=== PATIENT | male | born 1935 | race Caucasian/White ===

== ENCOUNTER 2016-08-17 07:33 | Inpatient (IN) | payer MEDICARE, OTHER ==
[~2016-08-17] VITALS: Ht 172.7 cm; Wt 69.9 kg
[2016-08-17] VITALS (29 sets, daily range): BP systolic 64–169; BP diastolic 44–99
[~2016-08-17 07:33] MED LIST: ACET325T53 PO; BENA20TA78 PO; CRAN425C PO; DONE5TAB3 PO; MEMA5TAB PO; SACC250C6 PO
--- NOTE | 2016-08-17 07:33 | NUR ---
Harinder from [facility] for sob since this morning. Patient appears in distress, noted on cpap upon arrival. Sating low 80s on room air. Skin is warm to touch and non diaphoretic. Afebrile. MD Pino at bedside.
--- NOTE | 2016-08-17 07:37 | NUR ---
intraosseaous accessed by MD Crabtree. IV insertion failed after multiple attemps.
[2016-08-17] MEDS ORDERED: PROPOFOL 100 ML IV ONE (07:38)
[2016-08-17] MEDS ORDERED: IV SET PRIMARY PUMP SET 1 EA INFUS.SET MC ONE ×3 (07:39→11:45)
--- NOTE | 2016-08-17 07:40 | NUR ---
Patient was intubated by MD Pion- ET size 7.5 inches , 24 cm at the lip
--- NOTE | 2016-08-17 07:45 | NUR ---
VENT SETTINGS- AC-18, TV-550, SH72-807%, PEEP OF 5.
--- NOTE | 2016-08-17 07:50 | NUR ---
AT FOR CENTRAL LINE INSERTION.
--- NOTE | 2016-08-17 07:50 | NUR ---
RT PT BROUGHT INTO ER ON A CPAP MASK BY PARAMEDICS. PT PRESENTS INCREASED WORK OF BREATHING AND RESPIRATORY DISTRESS. PT WAS ORALLY INTUBATED BY DR. CASTILLO WITH A 7.5 ETT SECURED AT 24CM AT THE LIP LINE. EQUAL BILATERAL BREATHE SOUNDS AND CHEST RISE. POSITIVE CO2 COLOR CHANGE. PT PLACED ON VENT WITH NOTED SETTINGS (AC, 18, 550, 100%, +5). VENT IS PLUGGED INTO RED OUTLET WITH BVM BY BEDSIDE. VENT ALARMS ARE SET AND AUDIBLE. SECURITY ORDERLY CUFF PRESSURE NOTED. WILL CONTINUE TO MONITOR. Addendum: 08/17/16 at 1423 by DANY FULLER RT Amended: Links added.
[2016-08-17] MEDS ORDERED: MORPHINE SULFATE INJ 4 MG/ML DISP.SYRIN ONE (07:59)
[2016-08-17] MEDS ORDERED: MORPHINE SULFATE INJ 2 MG/ML DISP.SYRIN ONE (07:59)
--- NOTE | 2016-08-17 08:04 | NUR ---
RECEIVED VERBAL ORDERS FOR MORPHINE IVP 6MG. ORDERS CARRIED OUT.
[2016-08-17] MEDS ORDERED: ALBU2.5V38 NEB (08:19)
[2016-08-17] MEDS ORDERED: MAG30ORA PO (08:19)
[2016-08-17] MEDS ORDERED: BISA10SU8 RC (08:19)
[2016-08-17] MEDS ORDERED: SENN8.6T6 PO (08:19)
[2016-08-17] MEDS ORDERED: NA P133E RC (08:19)
[2016-08-17] MEDS ORDERED: PANT40TA2 PO (08:19)
[2016-08-17] MEDS ORDERED: MULT-213 PO (08:19)
[2016-08-17] MEDS ORDERED: FERR-58 PO (08:19)
[2016-08-17] MEDS ORDERED: LACT10SO PO (08:19)
[2016-08-17] MEDS ORDERED: MAGN400O6 PO (08:19)
[2016-08-17] MEDS ORDERED: HYDR-552 PO (08:19)
--- NOTE | 2016-08-17 08:23 | NUR ---
( 16) FR chester catheter inserted per sterile protocal. Immediate output ( 100)ML of urine, color ( ), clarity (YELLOW )
[2016-08-17] MEDS ORDERED: MORPHINE SULFATE INJ 2 MG/ML DISP.SYRIN IV ONE (08:30)
[2016-08-17] MEDS ORDERED: PROPOFOL 100 ML IV PRN (08:30)
[2016-08-17 08:43] LABS: APPEARANCE,URINE SL CLOUDY (CLEAR); BILIRUBIN,URINE NEGATIVE (NEGATIVE); BLOOD, URINE 1+ Ery/uL (NEGATIVE); COLOR,URINE YELLOW (YELLOW); KETONES,URINE NEGATIVE (NEGATIVE); LEUKOCYTE ESTERASE ,URINE NEGATIVE (NEGATIVE); NITRITE, URINE NEGATIVE (NEGATIVE); PH,URINE 5.5 (5.0-8.0); PROTEIN,URINE 2+ mg/dl (NEGATIVE); UGLUCOSE 2+ mg/dL (NEGATIVE)
--- NOTE | 2016-08-17 08:44 | NUR ---
XRAY DONE AT BS.
[2016-08-17 08:53] LABS: CALCIUM, SERUM 7.4 mg/dL (8.5-10.1); CARBON DIOXIDE 25 mmol/L (21-32); CHLORIDE 108 mmol/L (98-107); CREATININE 0.9 mg/dL (0.6-1.3); GLUCOSE 138 mg/dL (74-106); POTASSIUM 3.2 mmol/L (3.5-5.1); SODIUM SERUM 143 mmol/L (136-145); UREA NITROGEN, BLOOD 19 mg/dL (7-18)
--- NOTE | 2016-08-17 08:58 | NUR ---
vent setting- ac 18 tv 550 fio2 100% peep 5
[2016-08-17 08:59] LABS: ADD URINE CULTURE NO; BACTERIA,URINE Rare /HPF (None Seen); HYALINE CASTS, URINE Few /LPF (None Seen); MUCUS,URINE Few /LPF (None Seen); SQUAMOUS EPITHELIAL CELL,UR Rare /HPF (None Seen); TROPONIN I < 0.017 ng/mL (0.00-0.056); WBC,URINE 0-2 /HPF (0-3)
[2016-08-17 09:00] LABS: YEAST,URINE Few /HPF (None Seen)
[2016-08-17] MEDS ORDERED: IV NS 0.9% 1,000 ML BAG IV ONE ×2 (09:00→09:30)
[2016-08-17 09:02] LABS: LACTIC ACID 4.3 mmol/L (0.4-2.0)
[2016-08-17 09:03] LABS: INR 1.24 (0.87-1.13); PROTHROMBIN TIME 13.4 SECS (9.5-12.7)
[2016-08-17] MEDS ORDERED: FEE EMEERGENCY 1 MIN EA MC ONE (09:04)
[2016-08-17] MEDS ORDERED: ETOMIDATE 2 MG/ML VIAL IV ONE (09:04)
[2016-08-17] MEDS ORDERED: SUCCINYLCHOLINE CHLORIDE 20 MG/ML VIAL IV ONE (09:04)
[2016-08-17 09:05] LABS: ALANINE AMINOTRANSFERASE 30 U/L (12-78); ALBUMIN 2.5 g/dL (3.4-5.0); ALKALINE PHOSPHATASE 92 U/L (46-116); ASPARTATE AMINOTRANSFERASE 27 U/L (15-37); B-TYPE NATRIURETIC PEPTIDE 1206 PG/ML (0-125); BILIRUBIN,DIRECT 0.4 mg/dL (0.0-0.2); BILIRUBIN,TOTAL 1.3 mg/dL (0.2-1.0); TOTAL PROTEIN, SERUM 5.9 g/dL (6.4-8.2)
[2016-08-17 09:08] LABS: BASOPHILS % (AUTO) 0.3 % (0.0-2.0); EOSINOPHILS % (AUTO) 0.2 % (0.0-6.0); HEMATOCRIT 37 % (39-51); HEMOGLOBIN 12.1 g/dL (13.5-17.5); LYMPHOCYTES # (AUTO) 0.2 /CMM (0.8-4.8); LYMPHOCYTES % (AUTO) 8.8 % (20.0-44.0); MEAN CORPUSCULAR HEMOGLOBIN 32 PG (26.0-33.0); MEAN CORPUSCULAR HGB CONC 33 g/dl (31.0-36.0); MEAN CORPUSCULAR VOLUME 97 fL (80-96); MONOCYTES # (AUTO) 0.1 /CMM (0.1-1.30); NEUTROPHILS # (AUTO) 2.2 /CMM (1.8-8.9); NEUTROPHILS % (AUTO) 86.7 % (43.0-81.0); RDW COEFFICIENT OF VARIATION 14.3 (11.5-15.0); RED BLOOD CELL COUNT(AUTO) 3.79 MIL/uL (4.5-6.0); WHITE BLOOD COUNT (AUTO) 2.6 K/uL (4.3-11.0)
[2016-08-17 09:09] LABS: PLATELET COUNT (AUTO) 109 /CMM (150-450)
[2016-08-17 09:23] LABS: BAND % (MANUAL) 9 % (0.0-5.0); LYMPHOCYTES % (MANUAL) 12 % (16-48); MONOCYTES % (MANUAL) 6 % (0-11.0); NEUTROPHILS % (MANUAL) 73 (42-76); PLATELET ESTIMATE ADEQUATE
[2016-08-17 09:24] LABS: ANISOCYTOSIS 1+
[2016-08-17] MEDS ORDERED: LEVOFLOXACIN 750 MG /D5W 150ML 150 ML IV ONE ×2 (09:24→09:30)
[2016-08-17] MEDS ORDERED: IV NS 0.9% 2,000 ML ONE (09:25)
[2016-08-17 09:26] LABS: ABG BASE EXCESS -1.4 mmol/L; ABG OXYGEN SATURATION 98.8 % (92.0-98.5); ABG PH 7.364 (7.350-7.450); ABG PO2 309.3 mmHg (75.0-100.0); ABG TOTAL HEMOGLOBIN 12.4 G/dL (13.5-18.0); AaDO2 360.7 mmHg; COHb 0.6 % (0.5-1.5); O2Hb 97.2 % (94.0-97.0); PEEP,BG 5 cm H2O; SITE, ABG Right Radial; VT, ABG 550 mL
[2016-08-17] MEDS ORDERED: PIPERACILLIN /TAZOBACTAM 3.375 G in IV D5W 50 ML IV ONE (09:30)
[2016-08-17] MEDS ORDERED: VANCOMYCIN 1 GM in IV D5W 250 ML IV ONE (09:30)
--- NOTE | 2016-08-17 09:30 | NUR ---
PT MEDICATED ORDERED.
--- NOTE | 2016-08-17 09:48 | NUR ---
CALLED [facility] FOR PULMONARY CONSULT [phone]
--- NOTE | 2016-08-17 10:17 | NUR ---
ORACLE BUSINESS INTELLIGENCE DEVELOPER NOTES REPORT RECEIVED FROM INGRID ORR (ER)
--- NOTE | 2016-08-17 10:32 | NUR ---
Report given to nurse Rylan for cari
--- NOTE | 2016-08-17 10:32 | NUR ---
Patient trasnported to icu. vss
--- NOTE | 2016-08-17 10:45 | NUR ---
DRY CELL AND BATTERY ASSEMBLER NOTES RECEIVED PATIENT FROM ER SEDATED , RESPONSIVE TO TACTILE STIMULI , NOT IN ACUTE DISTRESS , RESPIRATIONS EVEN AND UNLABORED , SPO2 OF 100% VIA MECHANICAL VENTILATOR SETTINGS ORDERED , ETT 7.[address] , SR 73 ON BEDSIDE MONITOR , FC DRAINING WELL VIA GRAVITY WITH VAMSI COLORED URINE , ON KCI MATTRESS , BILATERAL SOFT WRIST IN PLACE , VISUAL CHECK PER PROTOCOL , R FEMORAL TRIPLE LUMEN CATH PATENT AND INTACT WITH DIPRIVAN @ 15MCG/MIN WILL TITRATE ACCORDINGLY , IVF NS BOLUS STILL INFUSING FROM ER , ALL NEEDS ATTENDED , BED ON LOW AND LOCKED POSITION , SIDE RAILS X2 ,CALL LIGHT WITHIN REACH , WILL CONTINUE TO MONITOR .
[2016-08-17] MEDS ORDERED: ENOXAPARIN SODIUM 40 MG/0.4 ML DISP.SYRIN SQ SCH (11:00)
[2016-08-17] MEDS ORDERED: PIPERACILLIN /TAZOBACTAM 3.375 G in IV D5W 50 ML IV SCH (11:00)
--- NOTE | 2016-08-17 11:00 | NUR ---
CLINICAL STAFF RN NOTES ORAL GASTRIC TUBE PLACED , VERIFIED PLACEMENT VIA AUSCULTATION , NOTED WITH GURGLING SOUND AT STOMACH AREA , CHEST XRAY ORDERED TO VERIFIED PLACEMENT
--- NOTE | 2016-08-17 11:05 | NUR ---
VENETIAN BLIND CLEANER NOTES DR DIAZ AT BEDSIDE FOR PULMONARY CONSULT , NOTIFIED PT DIAGNOSIS LABS AND CHEST XRAY RESULT , INTUBATED IN ER WITH ETT OF 7.5/24 , AC 18 , TV 550 FIO2 60% PEEP OF 5 , ABG RESULT RELAYED POST INTUBATION , NOTIFIED PT HAD 2.5 L NS BOLUS AND IV ANTIBIOTIC OF LEVAQUIN 750MG , ZOSYN 3.375 G AND VANCOMYCIN 1GM .
[2016-08-17] MEDS ORDERED: FEE PK DOSING 1 MIN EA MC ONE (11:06)
--- NOTE | 2016-08-17 11:10 | NUR ---
CUSTOMER TRAINER NOTES BODY ASSESSMENT DONE , TOOK PICTURES AND PLACED ON THE CHART , WOUND CONSULT ORDERED . WILL CONTINUE TO MONITOR
[2016-08-17] MEDS ORDERED: SECONDARY IV SET 1 EA INFUS.SET MC ONE ×2 (11:22→17:08)
[2016-08-17] MEDS: POTASSIUM CL. PREMIX PERIPHER. 50 ML IV SCH ×3 (11:53→13:29)
[2016-08-17] MEDS: IV D5/ 0.9% NACL 1,000 ML IV PRN ×2 (11:54→23:54)
[2016-08-17] MEDS: ALBUTEROL HALF STRENGTH 1.25 MG/3 ML VIAL.NEB NEB SCH ×2 (12:58→19:49)
[2016-08-17] MEDS: IPRATROPIUM NEB FS 0.5 MG/2.5 ML AMPUL.NEB NEB SCH ×2 (12:59→19:49)
--- NOTE | 2016-08-17 13:02 | NUR ---
LONG GOODS DRIER NOTES CALLED DR SEE'S OFFICE @ [phone] , SPOKE WITH STACY , PAGED FOR ADMISSION ORDERS .
--- NOTE | 2016-08-17 13:23 | NUR ---
SCRIPT MANAGER NOTES CALLED [facility] TO VERIFY PNA AND FLU VACCINE HISOTRY OF THE PT , PER RN , PT HAD FLU VACCINE AT February , AND PNEUMONIA VACCINE AT 06/29/12
[2016-08-17] MEDS: PROPOFOL 100 ML IV PRN (13:31)
[2016-08-17] MEDS ORDERED: IV NS 0.9% 1,000 ML ONE (14:12)
[2016-08-17] MEDS ORDERED: IV NS 0.9% 1,000 ML IV PRN (14:30)
[2016-08-17] MEDS ORDERED: NOREPINEPHRINE 8 MG in IV D5W 500 ML IV PRN (14:30)
--- NOTE | 2016-08-17 14:48 | NUR ---
SUCTION PLATE CARRIER CLEANER NOTES NOTIFIED DR SEE REGARDING PATIENT SECOND LACTIC ACID OF 4.2 , BP OF 60-70'S , PER MD GIVE 1L BOLUS , IF BLOOD PRESSURE STILL LOW AFTER 1 L NS BOLUS START LEVOPHED . ORDERS CARRIED OUT
--- NOTE | 2016-08-17 16:10 | NUR ---
ACCOUNT RESOLUTION EXPERT NOTES DR SEE AT BEDSIDE , NOTIFIED PT LABS , CHEST XRAY , AND BP OF 116/52 AFTER 1L NS BOLUS , TEMP OF 99.4 , SR 78 ON BEDSIDE MONITOR , PT HAS FC DRAINING WITH VAMSI COLORED URINE 40ML/HR , LACTIC ACID 4.2 , PENDING BLOOD URINE CULTURE , PER MD ADD SPUTUM CULTURE , NOTIFIED PT HAS R FEMORAL TRIPLE LUMEN CATH , PER MD CHANGE IT TO PICC LINE PT HAS NO NEXT OF KIN PER FACE SHEET, CONSENT WAS NOT SIGNED BY DR SEE , PER MD HE WILL PUT IT ON HIS NOTES , HOME MEDICATION REVIEWED BY NO MEDICATION RESTARTED , PER MD START LOVENOX 30SQ DAILY AND PROTONIX 40MG Q24 .
--- NOTE | 2016-08-17 16:15 | NUR ---
PHYSICIAN ANESTHESIOLOGIST NOTES JOLLEY CATHETER DISCONTINUED PT TOLERATED WELL , CHANGED TO CONDOM CATHETER PER DR SEE'S ORDER , WILL CONTINUE TO MONITOR
--- NOTE | 2016-08-17 16:39 | NUR ---
DROP FORGE HAND NOTES [facility] P[facility] LINE INSERTION ORDERED BY DR SEE .
[2016-08-17] MEDS: PANTOPRAZOLE 40 MG VIAL IV SCH (17:13)
[2016-08-17] MEDS: PIPERACILLIN /TAZOBACTAM 3.375 G in IV D5W 50 ML IV SCH ×2 (17:13→23:53)
[2016-08-17] MEDS: ENOXAPARIN SODIUM 30 MG/0.3 ML DISP.SYRIN SQ SCH (17:24)
--- NOTE | 2016-08-17 18:27 | NUR ---
RT END OF THE SHIFT REPORT: PT. 80 Y OLD MALE REMAIN ORALLY INTUBATED ETT#7.5@24CM ON VENT WITH NOTED SETTINGS, ALARMS ARE SET AND FUNCTIONAL, B/S RALES/RHONCHI BILATERALLY SUX' FOR MINIMAL GRIMALDO SECRETIONS, NO DISTRESS NOTED T/O SHIFT NO CHANGES T/O SHIFT. CONTINUED FOR MONITOR. TX'S STARTED INLINE NO ADVERSE REACTION NOTED AND GABRIELA. WELL EQUAL CHEST RISE NOTED PT. HME CHANGED, PATENT CHEMIST, AMBU BAG REMAIN AT THE BEDSIDE. REPORT WILL PASS TO PM SHIFT. Addendum: 08/17/16 at 1828 by GUME LAGUNAS RT Amended: Links added.
--- NOTE | 2016-08-17 19:23 | NUR ---
PT REC'D INTUBATED WITH 7.5 ETT @ 24CM AT THE LIP. PT ON VENT SETTINGS CHARTED. SX'D MOD WHITE SECRETIONS. VENT ALARMS SET AND AUDIBLE. AMBU BAG BEDSIDE. VENT IS PLUGGED IN RED OUTLET. WILL CONTINUE TO MONITOR. Addendum: 08/18/16 at 0007 by KIM LAI RT Amended: Links added.
--- NOTE | 2016-08-17 20:00 | NUR ---
ICU/RN- PT IN BED SEDATED. NO S/SX OF ACUTE DISTRESS NOTED AT THIS TIME. ON MONITOR W/ SR IN 70S. PT IS ORALLY INTUBATED W/ ETT 7.5/ AC 18, TV 550, FIO2 40%, P 5. TOLERATING WELL. WILL SUCTION ETT PRN FOR CLEARANCE. R FEM TLC IN PLACE W/ D5NS@100ML/HR AND DIPRIVAN @ 10MCG/KG/MIN. TOLERATING WELL. WILL TITRATE DIPRIVAN FOR SEDATION. REPOSITIONED FOR COMFORT. BED LOW AND IN LOCKED POSITION. WILL MONITOR PT ACCORDINGLY.
[2016-08-17] MEDS: VANCOMYCIN 0.75 GM in IV D5W 250 ML IV SCH (21:59)
[2016-08-18] VITALS (63 sets, daily range): BP systolic 79–145; BP diastolic 51–99
[2016-08-18] MEDS: ALBUTEROL HALF STRENGTH 1.25 MG/3 ML VIAL.NEB NEB SCH ×4 (01:32→20:22)
[2016-08-18] MEDS: IPRATROPIUM NEB FS 0.5 MG/2.5 ML AMPUL.NEB NEB SCH ×4 (01:33→20:22)
--- NOTE | 2016-08-18 04:36 | NUR ---
ICU/RN- AM CARE PROVIDED. BLADDER SCANNER USED DUE TO POOR URINE OUTPUT. RESULTS 232ML. WILL CONT TO MONITOR
[2016-08-18 05:01] LABS: CALCIUM, SERUM 7.2 mg/dL (8.5-10.1); CREATININE 0.8 mg/dL (0.6-1.3); POTASSIUM 3.6 mmol/L (3.5-5.1)
[2016-08-18] MEDS ORDERED: SECONDARY IV SET 1 EA INFUS.SET MC ONE ×3 (05:44→23:07)
[2016-08-18] MEDS: PIPERACILLIN /TAZOBACTAM 3.375 G in IV D5W 50 ML IV SCH ×4 (06:02→23:13)
[2016-08-18] MEDS: PROPOFOL 100 ML IV PRN ×2 (06:02→12:47)
[2016-08-18] MEDS ORDERED: IV SET PRIMARY PUMP SET 1 EA INFUS.SET MC ONE ×4 (06:04→20:14)
[2016-08-18] MEDS: VANCOMYCIN 0.75 GM in IV D5W 250 ML IV SCH ×2 (08:52→20:41)
[2016-08-18] MEDS: PANTOPRAZOLE 40 MG VIAL IV SCH (08:52)
--- NOTE | 2016-08-18 09:09 | NUR ---
WOUND CARE CONSULT: PT PRESENTS WITH IMMOBILITY, CARLOS SCORE OF 11 AND INCONTINENCE. PT INTUBATED. PT ON FIRST STEP MATTRESS. PT TO BE TURNED AND REPOSITIONED EVERY 2 HRS PT CONDITION PERMITS, HEELS FLOATED. ALL SKIN PROTECTION MEASURES IN PLACE AND DISCUSSED WITH NURSING STAFF. WILL SEE PRN. HAYNES IN AGREEMENT WITH PLAN OF CARE. Addendum: 08/18/16 at 0911 by LOWELL SMITH WNDNU Amended: Links added.
[2016-08-18] MEDS ORDERED: IV NS 0.9% 500 ML IV ONE (11:30)
[2016-08-18] MEDS: IV D5/ 0.9% NACL 1,000 ML IV PRN (12:47)
[2016-08-18] MEDS: Z GUARD REMEDY 2 OZ OINT TP PRN (12:48)
--- NOTE | 2016-08-18 15:26 | NUR ---
URINE OUTPUT 125 ML SINCE 500 ML BOLUS AT 1130. REPORTED TO DR DIAZ.
[2016-08-18] MEDS: ENOXAPARIN SODIUM 30 MG/0.3 ML DISP.SYRIN SQ SCH (17:21)
--- NOTE | 2016-08-18 17:25 | NUR ---
RT END OF THE SHIFT REPORT: PT. 80 Y OLD MALE REMAIN ORALLY INTUBATED ETT#7.5 @ 24CM ON VENT WITH NOTED SETTINGS, ALARMS ARE SET AND FUNCTIONAL, B/S RALES/RHONCHI BILATERALLY SUX' FOR LARGE GRIMALDO SECRETIONS, NO DISTRESS NOTED T/O SHIFT TX'S GIVEN INLINE AND NO ADVERSE REACTION NOTED. CONTINUED FOR MONITOR. VENT PLUGGED INTO RED OUTLET. EQUAL CHEST RISE NOTED. HME CHANGED, AMBU BAG REMAIN AT THE BEDSIDE. PT. REMAIN STABLE. REPORT WILL BE PASS TO PM SHIFT. Addendum: 08/18/16 at 1727 by GUME LAGUNAS RT Amended: Links added.
--- NOTE | 2016-08-18 20:52 | NUR ---
PT RECEIVED ON VENT VIA ETT, SETTINGS CHARTED AMBU BAG AT BEDSIDE ALARMS SET AND AUDIBLE SUCTIONED A SMALL AMOUNT OF THICK WHITE SECRETIONS BREATH SOUNDS EQUAL BILATERAL DIMINISHED PT RECEIVING ALBUTEROL AND ATROVENT Q6 Addendum: 08/18/16 at 2052 by WAYNE OLIVEIRA RT Amended: Links added.
[2016-08-19] VITALS (45 sets, daily range): BP systolic 94–158; BP diastolic 54–102
[2016-08-19] MEDS: PROPOFOL 100 ML IV PRN ×2 (01:45→18:03)
[2016-08-19] MEDS: IV D5/ 0.9% NACL 1,000 ML IV PRN (01:57)
[2016-08-19] MEDS: ALBUTEROL HALF STRENGTH 1.25 MG/3 ML VIAL.NEB NEB SCH ×4 (02:07→19:35)
[2016-08-19] MEDS: IPRATROPIUM NEB FS 0.5 MG/2.5 ML AMPUL.NEB NEB SCH ×4 (02:07→19:35)
[2016-08-19 04:32] LABS: EOSINOPHILS # (AUTO) 0.2 /CMM (0.0-0.7); EOSINOPHILS % (AUTO) 1.9 % (0.0-6.0); HEMATOCRIT 28 % (39-51); HEMOGLOBIN 9.4 g/dL (13.5-17.5); LYMPHOCYTES % (AUTO) 8.4 % (20.0-44.0); MEAN CORPUSCULAR HEMOGLOBIN 33 PG (26.0-33.0); MEAN CORPUSCULAR HGB CONC 34 g/dl (31.0-36.0); MEAN CORPUSCULAR VOLUME 96 fL (80-96); MONOCYTES # (AUTO) 0.4 /CMM (0.1-1.30); MONOCYTES % (AUTO) 3.7 % (2.0-12.0); NEUTROPHILS # (AUTO) 10.1 /CMM (1.8-8.9); PLATELET COUNT (AUTO) 92 /CMM (150-450); RDW COEFFICIENT OF VARIATION 14.9 (11.5-15.0); RED BLOOD CELL COUNT(AUTO) 2.87 MIL/uL (4.5-6.0); WHITE BLOOD COUNT (AUTO) 11.7 K/uL (4.3-11.0)
[2016-08-19 04:43] LABS: CALCIUM, SERUM 7.4 mg/dL (8.5-10.1); CREATININE 0.7 mg/dL (0.6-1.3)
[2016-08-19 04:48] LABS: POTASSIUM 2.8 mmol/L (3.5-5.1)
[2016-08-19 05:51] LABS: BAND % (MANUAL) 9 % (0.0-5.0); EOSINOPHILS % (MANUAL) 4 % (0-4); LYMPHOCYTES % (MANUAL) 9 % (16-48); MONOCYTES % (MANUAL) 4 % (0-11.0); NEUTROPHILS % (MANUAL) 74 (42-76)
[2016-08-19 05:52] LABS: HYPOCHROMASIA 2+; PLATELET ESTIMATE DECRE
--- NOTE | 2016-08-19 06:52 | NUR ---
ICU/RN- INFORMED DR SEE ABOUT LOW K OF 2.8. MD ORDERED TO HAVE PHARMACY ADJUST POTASSIUM AND ADD MG LEVEL FOR AM. ORDERS CARRIED OUT.
--- NOTE | 2016-08-19 06:55 | NUR ---
ICU/RN - SPOKE PHARMACIST. INFORMED ABOUT POTASSIUM ADJUSTMENT PER DR SEE.
[2016-08-19] MEDS: PIPERACILLIN /TAZOBACTAM 3.375 G in IV D5W 50 ML IV SCH ×3 (06:59→18:03)
--- NOTE | 2016-08-19 09:00 | NUR ---
SEDATION VACATION PER PROTOCOL. VSS, PT ABLE TO SQUEEZE MY HAND, ABLE TO ANSWER SIMPLE QUESTIONS, DENIED PAIN.
[2016-08-19 09:13] LABS: ABG BASE EXCESS -2.7 mmol/L; ABG OXYGEN SATURATION 97.5 % (92.0-98.5); ABG PCO2 28.7 mmHg (35.0-45.0); ABG PH 7.464 (7.350-7.450); ABG PO2 104.6 mmHg (75.0-100.0); ABG TOTAL HEMOGLOBIN 11.1 G/dL (13.5-18.0); AaDO2 147.6 mmHg; COHb 0.5 % (0.5-1.5); MetHb 0.8 % (0.0-1.5); O2Hb 96.2 % (94.0-97.0); PEEP,BG 5 cm H2O; SITE, ABG Left Radial; VT, ABG 550 mL
[2016-08-19] MEDS: PANTOPRAZOLE 40 MG VIAL IV SCH (09:17)
[2016-08-19] MEDS: VANCOMYCIN 1 GM in IV D5W 250 ML IV SCH ×2 (09:18→21:21)
[2016-08-19] MEDS ORDERED: IV SET PRIMARY PUMP SET 1 EA INFUS.SET MC ONE (10:22)
[2016-08-19] MEDS: Magnesium 1GM/D5W 100ML PREMIX 100 ML IV SCH ×4 (10:31→13:36)
[2016-08-19] MEDS: POTASSIUM CL. PREMIX PERIPHER. 50 ML IV SCH ×6 (10:31→17:56)
[2016-08-19] MEDS ORDERED: FIBERSOURCE HN 1,000 ML BOTTLE GT PRN (11:00)
[2016-08-19] MEDS ORDERED: IV NS 0.9% 1,000 ML BAG IV PRN (12:30)
[2016-08-19] MEDS: FIBERSOURCE HN 1,000 ML BOTTLE GT PRN (13:36)
[2016-08-19] MEDS: IV NS 0.9% 1,000 ML IV PRN (15:04)
[2016-08-19] MEDS ORDERED: Magnesium 1GM/D5W 100ML PREMIX 100 ML IV SCH (16:26)
[2016-08-19] MEDS: ENOXAPARIN SODIUM 30 MG/0.3 ML DISP.SYRIN SQ SCH (17:57)
--- NOTE | 2016-08-19 19:30 | NUR ---
DIVISION CHAIR: RECEIVED PT ORALLY INTUBATED AND TOLERATING VENT SETTINGS ORDERED. ABLE TO OPEN EYES WHEN TOUCHED OR CALLED BY NAME. ON DIPRIVAN AT 10MCG/KG/MIN, CALM AND COOPERATIVE AT THIS TIME. ABLE TO FOLLOW SIMPLE COMMANDS. TOLERATING GTF WT 20CC RESIDUAL. WILL ADVANCE TO GOAL RATE TOLERATED. SR ON MOLDING SANDER. AFEBRILE. F/C PATENT AND INTACT DRAINING YELLOW COLORED URINE TO GRAVITY. SAFETY PRECAUTION NOTED. WILL CONTINUE TO MONITOR.
--- NOTE | 2016-08-19 22:12 | NUR ---
PT RECEIVED INTUBATED ON VENT ON NOTED SETTINGS. NO RESP DISTRESS NOTED. PT TOLERATING VENT SETTINGS. SX'D FOR MOD AMT OF THICK WHITE SECRETIONS. VENT ALARMS SET AND AUDIBLE. AMBU BAG AT [facility]. VENT PLUGGED INTO RED OUTLET. WILL CONTINUE OT MONITOR. Addendum: 08/19/16 at 2214 by VICKI HOWARD RT Amended: Links added.
[2016-08-20] VITALS (36 sets, daily range): BP systolic 100–152; BP diastolic 58–94
[2016-08-20] MEDS: PIPERACILLIN /TAZOBACTAM 3.375 G in IV D5W 50 ML IV SCH ×4 (00:32→18:07)
[2016-08-20] MEDS ORDERED: IV SET PRIMARY PUMP SET 1 EA INFUS.SET MC ONE (00:45)
[2016-08-20] MEDS: IPRATROPIUM NEB FS 0.5 MG/2.5 ML AMPUL.NEB NEB SCH ×4 (00:53→19:55)
[2016-08-20] MEDS: ALBUTEROL HALF STRENGTH 1.25 MG/3 ML VIAL.NEB NEB SCH ×4 (00:53→19:55)
[2016-08-20 05:26] LABS: CALCIUM, SERUM 7.2 mg/dL (8.5-10.1); CREATININE 0.6 mg/dL (0.6-1.3); POTASSIUM 3.2 mmol/L (3.5-5.1)
[2016-08-20] MEDS: PROPOFOL 100 ML IV PRN (06:27)
--- NOTE | 2016-08-20 06:30 | NUR ---
ICE CRUSHER: NO RENEA DURING THE SHIFT. CONTINUE ON DIPRIVAN AT 10MCG/KG/MIN, CALM AND COOPERATIVE. ABLE TO FOLLOW SIMPLE COMMANDS. NEEDED FREQUENT ORAL SUCTIONING DUE TO MODERATE AMT. OF THIN GRIMALDO SECRETIONS. VS WITHIN HIS BASELINE.
--- NOTE | 2016-08-20 06:50 | NUR ---
LUNG GUN OPERATOR: ONGOING TRANSFUSION OF 2ND UNIT OF PRBC WT NO ADVERSE SIDE EFFECTS. VS WITHIN HIS BASELINE. REMAINED A/O X 3. NO ACUTE DISTRESS. NO EVIDENCE OF DISCOMFORT. WILL ENDORSE TO DAY SHIFT TO TRANSFUSE 2 UNITS OF FFP. Addendum: 08/20/16 at 0725 by LEO DIEHL RN WRONG PATIENT DOCUMENTATION. PLS DISREGARD.
[2016-08-20] MEDS ORDERED: Magnesium 1GM/D5W 100ML PREMIX PIGGYBACK IV ONE (08:00)
--- NOTE | 2016-08-20 08:00 | NUR ---
VANCO DOSAGE DUE AT 0900, CALLED PHARMACY BECAUSE THERE IS A TIMED VANCO TROUGH AT 1100. ORDERS PLACED FOR STAT RANDOM VANCO AND WILL HANG THE DOSAGE IF ACCEPTABLE BY LEVEL.
[2016-08-20] MEDS: PANTOPRAZOLE 40 MG VIAL IV SCH (08:11)
[2016-08-20] MEDS: Magnesium 1GM/D5W 100ML PREMIX 100 ML IV SCH ×2 (08:12→09:03)
--- NOTE | 2016-08-20 09:06 | NUR ---
DIPRIVAN OFF, PT IS AWAKE AROUSABLE AND FOLLOWING COMMANDS, NODS HEADS AT INSTRUCTIONS TO BREATHE SLOWLY AND DEEPLY. EXPLAINED TO HIM THE WEANING TRIAL PROCESS. WEANING TRIAL INITIATED AT 0901 BY RT.
[2016-08-20] MEDS: VANCOMYCIN 1 GM in IV D5W 250 ML IV SCH ×2 (09:17→21:09)
[2016-08-20] MEDS: POTASSIUM CHLORIDE 20 MEQ POWDER PACKET GT SCH ×2 (10:08→11:21)
--- NOTE | 2016-08-20 10:50 | NUR ---
2ND VANCO TROUGH WAS NOT CANCELED AND THEREFORE RESULTED.... THE VANCO TROUGH FOR 08/20/16 AT 1050 IS A PEAK SINCE THE VANCOMYCIN WAS HUNG PRIOR TO THIS LAB BEING TAKEN (TONY JACOBSEN, RN WAS OFF UNIT). WILL ENDORSE TO PM SHIFT TO HANG THE NEXT SCHEDULED DOSE AND DISREGARD THE TROUGH FROM 08/20/16 @ 1050. DISCUSSED WITH PHARMACY, CHARGE NURSE, AND HECTOR ON THE UNIT ROUNDING, NOTIFIED WELL.
[2016-08-20 11:07] LABS: ABG BASE EXCESS -1.1 mmol/L; ABG OXYGEN SATURATION 96.1 % (92.0-98.5); ABG PCO2 35.3 mmHg (35.0-45.0); ABG PH 7.429 (7.350-7.450); ABG PO2 86.5 mmHg (75.0-100.0); ABG TOTAL HEMOGLOBIN 11.2 G/dL (13.5-18.0); COHb 0.5 % (0.5-1.5); MetHb 1.1 % (0.0-1.5); O2Hb 94.6 % (94.0-97.0); PEEP,BG 5 cm H2O; SITE, ABG Left Radial; VT, ABG 550 mL
--- NOTE | 2016-08-20 11:17 | NUR ---
ABG FROM WEANING TRIAL COMES BACK, RESULTS GIVEN TO DR. DIAZ WHO ORDERS TO PLACE PT ON CPAP MODE. RT NOTIFIED ORDERS FILLED OUT.
[2016-08-20] MEDS: IV NS 0.9% 1,000 ML IV PRN (15:18)
[2016-08-20] MEDS: FIBERSOURCE HN 1,000 ML BOTTLE GT PRN (15:19)
--- NOTE | 2016-08-20 15:27 | NUR ---
RT END OF THE SHIFT REPORT: PT. 80 Y OLD MALE REMAIN ORALLY INTUBATED ETT#7.5 @ 24CM ON VENT WITH NOTED SETTINGS, ALARMS ARE SET AND FUNCTIONAL, B/S RALES/RHONCHI BILATERALLY SUX' FOR MINIMAL GRIMALDO SECRETIONS, NO DISTRESS NOTED WEANING STARTED @0900 SIMV MODE AND POST ABG PLACED ON CPAP MODE @ [address] DIAZ ORDER GABRIELA. WELL. CONTINUED FOR MONITOR. VENT PLUGGED INTO RED OUTLET. EQUAL CHEST RISE NOTED. HME CHANGED, AMBU BAG REMAIN AT THE BEDSIDE. PT. REMAIN STABLE. Addendum: 08/20/16 at 1528 by GUME LAGUNAS RT Amended: Links added.
--- NOTE | 2016-08-20 15:57 | NUR ---
DR. DIAZ ON THE UNIT ORDERS TO PLACE PT BACK ON FULL AC 18 TV 550 35% FIO2 PEEP 5. OKAY TO RESTART SEDATION IF PT IS NOT TOLERATING VENT SETTINGS. PLAN FOR CPAP TOMORROW MORNING.
--- NOTE | 2016-08-20 16:00 | NUR ---
Pt placed back to AC mode settings per MD order. Addendum: 08/20/16 at 1601 by KRISHNA CORDOBA RT Amended: Links added.
--- NOTE | 2016-08-20 16:45 | NUR ---
PT OFF SEDATION BUT HE IS REACHING FOR IS ETT TUBE AND IS ABLE TO GRAB ONTO IT. BILATERAL SOFT WRIST RESTRAINTS APPLIED LOOSELY TO ALLOW FOR MOVEMENT BUT NOT IN THE RANGE OF THE ETT TUBE.
[2016-08-20] MEDS: ENOXAPARIN SODIUM 30 MG/0.3 ML DISP.SYRIN SQ SCH (18:08)
--- NOTE | 2016-08-20 21:37 | NUR ---
PT RECEIVED INTUBATED ON VENT ON NOTED SETTINGS. NO RESP DISTRESS NOTED. PT TOLERATING VENT SETTINGS. SX'D FOR MOD AMT OF THICK WHITE SECRETIONS. VENT ALARMS SET AND AUDIBLE. AMBU BAG AT [facility]. VENT PLUGGED INTO RED OUTLET. WILL CONTINUE OT MONITOR. Addendum: 08/20/16 at 2137 by VICKI HOWARD RT Amended: Links added.
[2016-08-21] VITALS (33 sets, daily range): BP systolic 113–153; BP diastolic 59–87
[2016-08-21] MEDS: PIPERACILLIN /TAZOBACTAM 3.375 G in IV D5W 50 ML IV SCH ×4 (00:02→17:38)
[2016-08-21] MEDS: ALBUTEROL HALF STRENGTH 1.25 MG/3 ML VIAL.NEB NEB SCH ×4 (01:25→19:38)
[2016-08-21] MEDS: IPRATROPIUM NEB FS 0.5 MG/2.5 ML AMPUL.NEB NEB SCH ×4 (01:25→19:38)
[2016-08-21 04:53] LABS: CREATININE 0.6 mg/dL (0.6-1.3); POTASSIUM 3.4 mmol/L (3.5-5.1)
--- NOTE | 2016-08-21 06:30 | NUR ---
PLANNER INTERNSHIP: NO SIGNIFICANT RENEA DURING THE SHIFT. REMAINED ALERT AND AWAKE. ABLE TO FOLLOW SIMPLE COMMANDS. TOLERATING VENT SETTINGS ORDERED WT NO ACUTE DISTRESS. NO EVIDENCE OF DISCOMFORT. NEEDED FREQUENT ORAL SUCTIONING DUE TO MODERATE TO LARGE AMT. OF WHITE THIN SECRETIONS. AFEBRILE. SR ON PARKING SUPERVISOR. TOLERATING GTF WT 5CC RESIDUAL. F/C PATENT AND INTACT DRAINING YELLOW URINE. BILAT. SOFT WRIST RESTRAINTS IN PLACE FOR EPISODES OF TRYING TO PULL TUBINGS. GOOD CIRCULATION AND NO SKIN BREAKDOWN NOTED WHEN RELEASED AND CHECKED. GOOD SKIN CARE RENDERED. ALL NEEDS MET. SAFETY PRECAUTION NOTED AT ALL TIMES.
--- NOTE | 2016-08-21 08:00 | NUR ---
ENTRY LEVEL ACCOUNT REPRESENTATIVE; ASSESSMENT RECEIVED PT VENTED VIA ETT, SEE FLOW SHEET FOR VENT SETTINGS. PT SCHEDULED FOR WEANING TODAY WILL COORDINATE WITH RT REGARDING TIME. PT OFF OF SEDATION, PT OPENS EYES AND ABLE TO FOLLOW SIMPLE COMMANDS. JOLLEY CATH INTACT DRAINING TO GRAVITY CLEAR YELLOW URINE. OG TUBE INTACT POSITIVE FOR AUSCULTATION AND ASPIRATION ABOUT 20ML OF RESIDUALS NOTED. NO ACUTE DISTRESS NOTED WILL CONTINUE TO MONITOR CLOSELY.
[2016-08-21] MEDS: VANCOMYCIN 1 GM in IV D5W 250 ML IV SCH ×2 (08:27→22:17)
[2016-08-21] MEDS: PANTOPRAZOLE 40 MG VIAL IV SCH (08:28)
[2016-08-21] MEDS ORDERED: POTASSIUM CHLORIDE 20 MEQ POWDER PACKET GT ONE (10:00)
[2016-08-21 10:58] LABS: ABG BASE EXCESS 3.4 mmol/L; ABG PCO2 36.2 mmHg (35.0-45.0); ABG PH 7.488 (7.350-7.450); ABG PO2 75.4 mmHg (75.0-100.0); ABG TOTAL HEMOGLOBIN 10.5 G/dL (13.5-18.0); AaDO2 132.1 mmHg; COHb 0.1 % (0.5-1.5); MetHb 1.3 % (0.0-1.5); O2Hb 93.7 % (94.0-97.0); SITE, ABG Right Radial; VENT MODE, BG CPAP 5 PS 12
--- NOTE | 2016-08-21 13:00 | NUR ---
CERTIFIED PROSTHETIST/ORTHOTIST; PULMONARY DR. DIAZ AT BEDSIDE UPDATE WAS GIVEN. DISCUSSED REGARDING PTS TACHYPNEA RESP RATE 25BPM. ORDERS GIVEN TO PLACE PT BACK TO AC MODE. RT AT BEDSIDE PT BACK TO AC MODE. WILL CONTINUE TO MONITOR.
[2016-08-21] MEDS: FIBERSOURCE HN 1,000 ML BOTTLE GT PRN (15:22)
[2016-08-21] MEDS: IV NS 0.9% 1,000 ML IV PRN (15:22)
[2016-08-21] MEDS: MORPHINE SULFATE INJ 2 MG/ML DISP.SYRIN IV PRN (16:06)
[2016-08-21] MEDS: ENOXAPARIN SODIUM 30 MG/0.3 ML DISP.SYRIN SQ SCH (16:06)
[2016-08-21] MEDS: LACTOBACILLUS RHAMNOSUS GG 1 EACH CAP.SPRINK PO SCH (16:06)
[2016-08-22] VITALS (35 sets, daily range): BP systolic 105–155; BP diastolic 56–92
[2016-08-22] MEDS: PIPERACILLIN /TAZOBACTAM 3.375 G in IV D5W 50 ML IV SCH ×5 (00:41→23:53)
[2016-08-22] MEDS: ALBUTEROL HALF STRENGTH 1.25 MG/3 ML VIAL.NEB NEB SCH ×4 (01:43→19:22)
[2016-08-22] MEDS: IPRATROPIUM NEB FS 0.5 MG/2.5 ML AMPUL.NEB NEB SCH ×4 (01:44→19:22)
[2016-08-22] MEDS: MORPHINE SULFATE INJ 2 MG/ML DISP.SYRIN IV PRN ×2 (02:33→15:46)
[2016-08-22 04:49] LABS: CALCIUM, SERUM 7.4 mg/dL (8.5-10.1); CREATININE 0.6 mg/dL (0.6-1.3); POTASSIUM 3.4 mmol/L (3.5-5.1)
--- NOTE | 2016-08-22 05:00 | NUR ---
GEOLOGICAL MANAGER - REC'D PT. VENTED W/EYES OPEN. PT.IS VERY STIFF TO ALL EXT. PT. GRABS ANYTHING HE CAN, SO BILAT. SOFT WRIST RESTRAINTS ARE BEING USED PER SAFETY PROTOCOL.VSS-ALTHOUGH PT. WILL GO NICOLE IN THE 50'S SOMETIMES-AFEBRILE. JOLLEY CATH TO GRAVITY. OGT HAS FIBERSOURCE INFUSING AT 55CC/HR. VIA PUMP. 0.9%NS INFUSING AT 50CC/HR. VIA RUE PICC LINE. ALL PORTS ARE PATENT TO FLUSH. PT. WAS ADM. A COMP. BEDBATH WAS ADM. AT 3AM. ORAL,VENT,WU,SKIN & WOUND CARE ADM. +BM. MORPHINE [id number] IVP WAS ADM. AT 02:30 FOR COMFORT. CONT. POC.
--- NOTE | 2016-08-22 06:06 | NUR ---
SENIOR GRANT WRITER - NO CHANGES FROM PREVIOUS ASSESSMENTS. BILAT. POST TIB PULSES AUSC. BY DOPPLER. STRONG DOPPLER YADIEL.PED. PULSE AUSC. ON RT. WEAK ON LEFT (YADIEL.PED. PULSE) AUSC. WILL ENDORSE TO DAYSHIFT RN. CONT. POC. PCXR DONE & AM LABS DRAWN VIA RUE PICC LINE.
[2016-08-22 07:34] LABS: BASOPHILS % (AUTO) 0.5 % (0.0-2.0); EOSINOPHILS # (AUTO) 0.2 /CMM (0.0-0.7); EOSINOPHILS % (AUTO) 2.2 % (0.0-6.0); HEMATOCRIT 27 % (39-51); HEMOGLOBIN 9.1 g/dL (13.5-17.5); LYMPHOCYTES # (AUTO) 1.4 /CMM (0.8-4.8); LYMPHOCYTES % (AUTO) 17.3 % (20.0-44.0); MEAN CORPUSCULAR HEMOGLOBIN 32 PG (26.0-33.0); MEAN CORPUSCULAR HGB CONC 34 g/dl (31.0-36.0); MEAN CORPUSCULAR VOLUME 96 fL (80-96); MONOCYTES # (AUTO) 0.6 /CMM (0.1-1.30); MONOCYTES % (AUTO) 7.7 % (2.0-12.0); NEUTROPHILS # (AUTO) 5.7 /CMM (1.8-8.9); NEUTROPHILS % (AUTO) 72.3 % (43.0-81.0); PLATELET COUNT (AUTO) 151 /CMM (150-450); RDW COEFFICIENT OF VARIATION 14.5 (11.5-15.0); RED BLOOD CELL COUNT(AUTO) 2.82 MIL/uL (4.5-6.0); WHITE BLOOD COUNT (AUTO) 7.9 K/uL (4.3-11.0)
--- NOTE | 2016-08-22 08:00 | NUR ---
RADIATION ONCOLOGY NURSE; ASSESSMENT RECEIVED PT VENTED VIA ETT, SEE FLOW SHEET FOR VENT SETTINGS. PT IS ABLE TO OPEN EYES AND FOLLOW SIMPLE COMMANDS. ANGELI SOFT WRIST RESTRAINS ON FOR PT SAFETY. ANGELI LOWER AND UPPER EXTREMITIES RIGID. UPPER ARM PICC LINE INTACT. JOLLEY CATH DRAINING TO GRAVITY CLEAR YELLOW URINE. OG TUBE INTACT, TOLERATING TUBE FEEDINGS. NO ACUTE DISTRESS NOTED. WILL CONTINUE TO MONITOR.
--- NOTE | 2016-08-22 08:31 | NUR ---
RT PATIENT REC'D ORALLY INTUBATED W/ A 7.5ETT SECURED AT 23CM VIA ANCHOR FAST. ON [facility] VENT W/SETTINGS: AC 12, 550, 35% +5 GABRIELA WELL. VENT ALARMS CHECKED + AUDIBLE. BILAT DIM B/S HEARD. SX'D W/ SMALL AMT PALE SEMITHICK SECRETIONS. AMBU BAG AT HOB Addendum: 08/22/16 at 0833 by TIKA SHAFER RT Amended: Links added.
[2016-08-22] MEDS: VANCOMYCIN 1 GM in IV D5W 250 ML IV SCH ×2 (08:34→21:18)
[2016-08-22] MEDS: LACTOBACILLUS RHAMNOSUS GG 1 EACH CAP.SPRINK PO SCH ×2 (08:34→17:12)
[2016-08-22] MEDS: PANTOPRAZOLE 40 MG VIAL IV SCH (08:34)
[2016-08-22] MEDS: POTASSIUM CL. PREMIX PERIPHER. 50 ML IV SCH ×2 (10:21→11:13)
[2016-08-22] MEDS ORDERED: IV SET PRIMARY PUMP SET 1 EA INFUS.SET MC ONE (14:41)
[2016-08-22] MEDS: IV NS 0.9% 250 ML IV PRN (14:50)
[2016-08-22] MEDS: FIBERSOURCE HN 1,000 ML BOTTLE GT PRN (14:51)
[2016-08-22] MEDS: ENOXAPARIN SODIUM 30 MG/0.3 ML DISP.SYRIN SQ SCH (17:12)
--- NOTE | 2016-08-22 20:23 | NUR ---
PT RECEIVED INTUBATED ON VENT ON NOTED SETTINGS. NO RESP DISTRESS NOTED. PT TOLERATING VENT SETTINGS. SX'D FOR MOD AMT OF THICK WHITE SECRETIONS. VENT ALARMS SET AND AUDIBLE. AMBU BAG AT [facility]. VENT PLUGGED INTO RED OUTLET. WILL CONTINUE OT MONITOR. Addendum: 08/22/16 at 2022 by VICKI HOWARD RT Amended: Links added.
[2016-08-23] VITALS (36 sets, daily range): BP systolic 91–160; BP diastolic 31–94
[2016-08-23] MEDS: IPRATROPIUM NEB FS 0.5 MG/2.5 ML AMPUL.NEB NEB SCH ×4 (01:01→20:08)
[2016-08-23] MEDS: ALBUTEROL HALF STRENGTH 1.25 MG/3 ML VIAL.NEB NEB SCH ×4 (01:01→20:08)
[2016-08-23] MEDS: MORPHINE SULFATE INJ 2 MG/ML DISP.SYRIN IV PRN (03:46)
--- NOTE | 2016-08-23 03:55 | NUR ---
CHEMICAL EDUCATOR - REC'D PT. VENTED/RESTRAINED DUE TO ATTEMPTING TO PULL ON TUBING. BLE PULSES ARE AUSC W/DOPPLER. PT. WAS ADM. COMPL. BEDBATH DUE TO FECAL INC. MORPHINE SULFATE 2 MG IVP WAS ADM. DUE TO PT. APPEARING ANXIOUS. PT. ALSO HAS COPIOUS AMT. OF SECRETIONS & NEEDS SX'D FREQUENTLY. JOLLEY CATH TO GRAVITY W/GOOD UOP. AFEBRILE. PT.IS SR/SB. VSS. OGT/FIBERSOURCE INFUSING AT 55CC/HR. LITTLE RESIDUALS. CONT.POC.
[2016-08-23 04:55] LABS: BASOPHILS % (AUTO) 0.4 % (0.0-2.0); EOSINOPHILS # (AUTO) 0.2 /CMM (0.0-0.7); EOSINOPHILS % (AUTO) 2.5 % (0.0-6.0); HEMATOCRIT 27 % (39-51); HEMOGLOBIN 8.7 g/dL (13.5-17.5); LYMPHOCYTES # (AUTO) 1.1 /CMM (0.8-4.8); LYMPHOCYTES % (AUTO) 13.7 % (20.0-44.0); MEAN CORPUSCULAR HEMOGLOBIN 31 PG (26.0-33.0); MEAN CORPUSCULAR HGB CONC 33 g/dl (31.0-36.0); MEAN CORPUSCULAR VOLUME 96 fL (80-96); MONOCYTES # (AUTO) 0.5 /CMM (0.1-1.30); MONOCYTES % (AUTO) 5.7 % (2.0-12.0); NEUTROPHILS # (AUTO) 6.4 /CMM (1.8-8.9); NEUTROPHILS % (AUTO) 77.7 % (43.0-81.0); PLATELET COUNT (AUTO) 178 /CMM (150-450); RDW COEFFICIENT OF VARIATION 14.8 (11.5-15.0); RED BLOOD CELL COUNT(AUTO) 2.79 MIL/uL (4.5-6.0); WHITE BLOOD COUNT (AUTO) 8.2 K/uL (4.3-11.0)
[2016-08-23 05:10] LABS: CALCIUM, SERUM 7.3 mg/dL (8.5-10.1); CREATININE 0.7 mg/dL (0.6-1.3); MAGNESIUM 1.8 mg/dL (1.8-2.4); PHOSPHORUS 3.7 mg/dL (2.5-4.9); POTASSIUM 3.7 mmol/L (3.5-5.1)
[2016-08-23] MEDS: PIPERACILLIN /TAZOBACTAM 3.375 G in IV D5W 50 ML IV SCH ×4 (05:24→23:45)
--- NOTE | 2016-08-23 08:41 | NUR ---
RT PATIENT REC'D ORALLY INTUBATED W/ A 7.5ETT SECURED AT 23CM VIA ANCHOR FAST. ON [facility] VENT W/SETTINGS: AC 12, 550, 35% +5 GABRIELA WELL. VENT ALARMS CHECKED + AUDIBLE. BILAT DIM B/S HEARD. SX'D W/ SMALL AMT PALE SEMITHICK SECRETIONS. AMBU BAG AT HOB Addendum: 08/23/16 at 0842 by TIKA SHAFER RT Amended: Links added.
[2016-08-23] MEDS: LACTOBACILLUS RHAMNOSUS GG 1 EACH CAP.SPRINK PO SCH ×2 (08:45→17:51)
[2016-08-23] MEDS: PANTOPRAZOLE 40 MG VIAL IV SCH (08:46)
[2016-08-23] MEDS: VANCOMYCIN 1 GM in IV D5W 250 ML IV SCH ×2 (08:46→21:00)
--- NOTE | 2016-08-23 12:02 | NUR ---
RT PER DR COSTA DAILY ABG NOT NECESSARY TODAY, PATIENT STABLE WITH NO DISTRESS OR SOB
[2016-08-23] MEDS: FIBERSOURCE HN 1,000 ML BOTTLE GT PRN (15:28)
[2016-08-23] MEDS: IV NS 0.9% 250 ML IV PRN (15:28)
[2016-08-23] MEDS: ENOXAPARIN SODIUM 30 MG/0.3 ML DISP.SYRIN SQ SCH (17:51)
[2016-08-24] VITALS (36 sets, daily range): BP systolic 83–199; BP diastolic 44–104
[2016-08-24] MEDS: ALBUTEROL HALF STRENGTH 1.25 MG/3 ML VIAL.NEB NEB SCH ×4 (01:23→19:57)
[2016-08-24] MEDS: IPRATROPIUM NEB FS 0.5 MG/2.5 ML AMPUL.NEB NEB SCH ×4 (01:23→19:57)
[2016-08-24 05:07] LABS: CALCIUM, SERUM 7.4 mg/dL (8.5-10.1); CREATININE 0.8 mg/dL (0.6-1.3); POTASSIUM 3.6 mmol/L (3.5-5.1)
[2016-08-24] MEDS: PIPERACILLIN /TAZOBACTAM 3.375 G in IV D5W 50 ML IV SCH ×4 (05:40→23:04)
[2016-08-24] MEDS: Z GUARD REMEDY 2 OZ OINT TP PRN (05:41)
--- NOTE | 2016-08-24 06:00 | NUR ---
TALENT ACQUISITION ASSISTANT - REC'D PT. VENTED W/PATENT AIRWAY. VANCO TROUGH AT 20:00 LAST NIGHT WAS #22. VANCO IVPB HELD. COMP. BEDBATH ADM. W/SKIN PICTURES TAKEN. ONE BM/FECAL INC. GOOD UOP VIA JOLLEY CATH TO GRAVITY. PEDAL PULSES AUSC. BY DOPPLER. RT. SIDE STRONGER THAN LEFT AUSC. BILAT.SOFT WRIST RESTRAINTS ON PER SAFETY PROTOCOL. OGT HAS FIBER - SOURCE TF INFUSING AT 55CC/HR W/LITTLE RESIDUALS. TEMPS ARE LOW 99'S. COOLING MEASURES STARTED. REPORT ENDORSED TO MORRIS Hay CONT. POC.
--- NOTE | 2016-08-24 07:15 | NUR ---
SHOWROOM CONSULTANT NOTES RECEIVED PATIENT AWAKE ALERT , LETHARGIC , NOT IN ACUTE DISTRESS , RESPIRATIONS EVEN AND UNLABORED , SPO2 OF 100% VIA MECHANICAL VENTILATOR SETTINGS ORDERED , ETT 7.[address] , SR 83 ON BEDSIDE MONITOR , FC DRAINING WELL VIA GRAVITY WITH CLEAR YELLOW URINE URINE , ON KCI MATTRESS , BILATERAL SOFT WRIST IN PLACE , VISUAL CHECK PER PROTOCOL , OJT IN PLACE VERIFIED PLACEMENT VIA AUSCULTATION NOTED WITH GURGLING SOUND AROUND THE STOMACH , OJT FEEDING OF FIBERSOURCE @ 55ML/HR INFUSING WELL WITH NO RESIDUALS NOTED , ON KCI MATTRESS , PASHA PICC LINE PATENT AND INTACT WITH NS @ TKO , ALL NEEDS ATTENDED , BED ON LOW AND LOCKED POSITION , SIDE RAILSX2 , CALL LIGHT WITHIN REACH , HOB @ 45 , WILL CONTINUE TO MONITOR
[2016-08-24] MEDS: LACTOBACILLUS RHAMNOSUS GG 1 EACH CAP.SPRINK PO SCH ×2 (08:29→18:14)
[2016-08-24] MEDS: PANTOPRAZOLE 40 MG VIAL IV SCH (08:29)
--- NOTE | 2016-08-24 08:30 | NUR ---
DUMP MOTORMAN NOTES CALLED PHARMACY , SPOKE WITH APRIL , NOTIFIED PT VANCOMYCIN THROUGH OF 08/23/16 , AND PATIENT HAS A DOSE OF VANCOMYCIN @ 0900 , PER PHARMACIST HOLD THE DOSE AND SHE WILL ORDER RANDOM VANCOMYCIN TO BE ADDED TO AM LABS . WILL CONTINUE TO MONITOR
[2016-08-24 08:48] LABS: ABG BASE EXCESS 6.2 mmol/L; ABG OXYGEN SATURATION 95.9 % (92.0-98.5); ABG PH 7.485 (7.350-7.450); ABG PO2 85.3 mmHg (75.0-100.0); ABG TOTAL HEMOGLOBIN 9.9 G/dL (13.5-18.0); AaDO2 116.6 mmHg; COHb 0.4 % (0.5-1.5); MetHb 0.6 % (0.0-1.5); O2Hb 94.9 % (94.0-97.0); PEEP,BG 5 cm H2O; SITE, ABG Left Radial; VT, ABG 550 mL
--- NOTE | 2016-08-24 09:33 | NUR ---
MIG WELDER NOTES DR DIAZ AT BEDSIDE , DISCUSSED AM LABS, CHEST XRAY AND ABG RESULT , PT IS MORE AWAKE , SPO2 OF 100% VIA MECHANICAL VENTILATOR SETTING ORDERED , NO FEVER , V/S STABLE , PER MD PLACE PT ON SIMV MODE @ 1300 WITH SETTINGS OF RATE 4 PSV 12 , PEEP 5 AND AFTER AN HOUR , ORDERS CARRIED OUT
--- NOTE | 2016-08-24 09:35 | NUR ---
NEUROSURGERY PHYSICIAN NOTES RECEIVED PATIENT AWAKE ALERT , LETHARGIC , NOT IN ACUTE DISTRESS , RESPIRATIONS EVEN AND UNLABORED , SPO2 OF 100% VIA MECHANICAL VENTILATOR SETTINGS ORDERED , ETT 7.5/[address] , SR 83 ON BEDSIDE MONITOR , FC DRAINING WELL VIA GRAVITY WITH VAMSI COLORED URINE , ON KCI MATTRESS , BILATERAL SOFT WRIST IN PLACE , VISUAL CHECK PER PROTOCOL , R FEMORAL TRIPLE LUMEN CATH PATENT AND INTACT WITH DIPRIVAN @ 15MCG/MIN WILL TITRATE ACCORDINGLY , IVF NS BOLUS STILL INFUSING FROM ER , ALL NEEDS ATTENDED , BED ON LOW AND LOCKED POSITION , SIDE RAILS X2 ,CALL LIGHT WITHIN REACH , WILL CONTINUE TO MONITOR . Addendum: 08/24/16 at 0944 by MORRIS MANDUJANO RN NEUROSURGERY PHYSICIAN NOTES RECEIVED PATIENT AWAKE ALERT , LETHARGIC , NOT IN ACUTE DISTRESS , RESPIRATIONS EVEN AND UNLABORED , SPO2 OF 100% VIA MECHANICAL VENTILATOR SETTINGS ORDERED , ETT 7.[address] , SR 83 ON BEDSIDE MONITOR , FC DRAINING WELL VIA GRAVITY WITH CLEAR YELLOW URINE URINE , ON KCI MATTRESS , BILATERAL SOFT WRIST IN PLACE , VISUAL CHECK PER PROTOCOL , OJT IN PLACE VERIFIED PLACEMENT VIA AUSCULTATION NOTED WITH GURGLING SOUND AROUND THE STOMACH , OJT FEEDING OF FIBERSOURCE @ 55ML/HR INFUSING WELL WITH NO RESIDUALS NOTED , ON KCI MATTRESS , PASHA PICC LINE PATENT AND INTACT WITH NS @ TKO , ALL NEEDS ATTENDED , BED ON LOW AND LOCKED POSITION , SIDE [id number] , CALL LIGHT WITHIN REACH , HOB @ 45 , WILL CONTINUE TO MONITOR
--- NOTE | 2016-08-24 10:15 | NUR ---
EVAPORATOR REPAIRER NOTES SPOKE WITH APRIL , NOTIFIED [facility]ANDOM VANCOMYCIN OF 15 , PER PHARMACIST OK TO GIVE VANCOMYCIN DOSE
[2016-08-24] MEDS: VANCOMYCIN 1 GM in IV D5W 250 ML IV SCH (10:29)
--- NOTE | 2016-08-24 11:01 | NUR ---
PNP NOTES ORELLANA EVAL DONE BY VALARIE , PATIENT INFO PROVIDED , WILL CONTINUE TO MONITOR
--- NOTE | 2016-08-24 13:15 | NUR ---
RARE/ENDANGERED SPECIES SPECIALIST NOTES RT AT BEDSIDE FOR WEANING TRIAL , VENT SETTINGS CHANGED TO SIMV MODE RATE OF 4 , PSV 12 AND PEEP OF 5 , WILL CONTINUE TO MONITOR
[2016-08-24] MEDS ORDERED: DC PROPOFOL WHEN EXTUBATED XX PRN (14:00)
[2016-08-24 15:10] LABS: ABG BASE EXCESS 6.3 mmol/L; ABG OXYGEN SATURATION 93.1 % (92.0-98.5); ABG PCO2 47.1 mmHg (35.0-45.0); ABG PO2 68.5 mmHg (75.0-100.0); ABG TOTAL HEMOGLOBIN 10.9 G/dL (13.5-18.0); AaDO2 126.3 mmHg; COHb 0.6 % (0.5-1.5); MetHb 0.9 % (0.0-1.5); O2Hb 91.7 % (94.0-97.0); PEEP,BG 5 cm H2O; SITE, ABG Left Radial; VENT MODE, BG SIMV 4 PS 12; VT, ABG 550 mL
--- NOTE | 2016-08-24 15:14 | NUR ---
CHIPPER OPERATOR NOTES DR DIAZ AT BEDSIDE , NOTIFIED ABG RESULT , ON SIMV MODE , BP OF 162/92 , RR32 , SPO2 OF 92% , HR OF 99 , PER MD EXTUBATE PT , ORDERS CARRIED OUT
--- NOTE | 2016-08-24 15:25 | NUR ---
DELI WORKER NOTES PT SUCSEFFULY EXTUBATED , ON 5LPM NC SPO2 OF 88 , CHANGED TO SIMPLE MASK @ 10LPM NOTED WITH SPO2 OF 94-95% , NOTED WITH CONGESTION , DR DIAZ AT BEDSIDE , ORDERED TO DO DEEP SUCTIONING PRN , AND MUCOMYST BREATHING TX . WILL CONTINUE TO MONITOR
[2016-08-24] MEDS: ACETYLCYSTEINE 10% SOLN 400 MG/4 ML VIAL NEB SCH (16:03)
[2016-08-24 16:22] LABS: ABG BASE EXCESS 3.8 mmol/L; ABG OXYGEN SATURATION 88.6 % (92.0-98.5); ABG PCO2 130.9 mmHg (35.0-45.0); ABG PH 7.071 (7.350-7.450); ABG PO2 80.7 mmHg (75.0-100.0); ABG TOTAL HEMOGLOBIN 11.4 G/dL (13.5-18.0); AaDO2 91.3 mmHg; COHb 0.6 % (0.5-1.5); O2Hb 87.2 % (94.0-97.0); SITE, ABG Left Radial; VENT MODE, BG NBM
--- NOTE | 2016-08-24 16:22 | NUR ---
ORTHOTIC FINISH GRINDING TECHNICIAN NOTES NOTIFIED DR DIAZ REGARDING ABG RESULT S/P EXTUBATION , NEURO STATUS DECLINING , RESPONSIVE TO DEEP PAIN STIMULI , TACHYPNEIC RR OF 35 CPM , BP OF 191/90 , ST 110 , SPO2 OF 87 % 10LPM SIMPLE MASK , NOTED WITH CONGESTION , PER MD CALL ER FOR RE INTUBATION , ORDERS CARRIED OUT .
[2016-08-24] MEDS ORDERED: IV SET PRIMARY PUMP SET 1 EA INFUS.SET MC ONE (16:26)
--- NOTE | 2016-08-24 16:35 | NUR ---
FRUCTOSE LOADER NOTES DR BURRIS AT BEDSIDE FOR INTUBATION , NOTIFIED PT S/P EXTUBATION AN HOUR AGO , DISCUSSED PT DIAGNOSIS AND HISTORY , TACHYPNEIC 35CPM , ST 110 , BP OF 190/90 , , ABG RESULTS RELAYED POST EXTUBATION , DISCUSSED LABS , NEURO STATUS DECLINING RESPONSIVE TO DEEP PAIN STIMULI , ORDERED ETOMIDATE 10 MG AND SUCCINYLCHOLINE 100 MG , SUCCESSFUL INTUBATED WITH ETT OF 7.5/24 , AUDIBLE LUNG SOUND AUSCULTATED THROUGH OUT NOTED WITH DIMINISHED BREATH SOUNDS , NGT INSERTED VERIFIED PLACEMENT WITH BED RN , NOTED WITH GURGLING SOUND AROUND STOMACH AREA , CHEST XRAY ORDERED STAT . WILL CONTINUE TO MONITOR .
--- NOTE | 2016-08-24 17:00 | NUR ---
WHEEL AND AXLE INSPECTOR NOTES PT TOLERATING VENTILATOR SETTINGS OF AC 12 , TV 550 FIO2 50 % AND PEEP OF 5 WITH SPO2 OF 100% , NO S/S OF DISTRESS , ETT 7.10/[address] , PENDING CHEST XRAY RESULT , ABG POST INTUBATION ORDERED , WILL CONTINUE TO MONITOR
--- NOTE | 2016-08-24 17:15 | NUR ---
NIGHT CLERK AUDITOR NOTES DR SEE AT BEDSIDE , NOTIFIED PT S/P EXTUBATION AND RE INTUBATION , DISCUSSED LABS , ABG AND CHEST XRAY . HOLD SEDATION FOR NOW PER DR SEE, PENDING ORELLANA TRANSFER , AWARE , NO NEW ORDERS
[2016-08-24] MEDS ORDERED: PROPOFOL 100 ML IV PRN (17:30)
[2016-08-24] MEDS: ENOXAPARIN SODIUM 30 MG/0.3 ML DISP.SYRIN SQ SCH (18:19)
--- NOTE | 2016-08-24 18:23 | NUR ---
RT END OF THE SHIFT REPORT: PT. 80 Y OLD MALE REMAIN ORALLY INTUBATED ETT#7.5 @ 24 CM ON VENT WITH NOTED SETTINGS, ALARMS ARE SET AND FUNCTIONAL, B/S RALES/RHONCHI BILATERALLY T/O SHIFT @ 1315 PT. PLACED ON WEANING TRAIL PER DR. DIAZ ORDER POST ABG ON SIMV PT. EXTUBATED PER DR. DIAZ, AT THE BEDSIDE. SUX' FOR MINIMAL GRIMALDO SECRETIONS, NO STRIDOR NOTED PLACED ON 10 L/MIN SIMPLE MASK @1615 PT. MENTAL STATUS CHANGED ABG DONE @1618 RESULTS READ BACK TO KIRBY MATUTE. ER DR. BURRIS AWARE OF RESULTS AND @1628 PT. INTUBATED ETT# 7.5 @ 24 CM LIPLINE GABRIELA. WELL. CONTINUED FOR MONITOR. VENT PLUGGED INTO RED OUTLET. EQUAL CHEST RISE NOTED. GOOD COLOR EXCHANGED HME CHANGED, AMBU BAG REMAIN AT THE BEDSIDE. PT. REMAIN STABLE. REPORT WILL PASS TO PM SHIFT. Addendum: 08/24/16 at 1829 by GUME LAGUNAS RT Amended: Links added.
--- NOTE | 2016-08-24 18:55 | NUR ---
CLINICAL INFORMATICS EDUCATOR NOTES CALLED RADIOLOGY TO FOLLOW UP STAT CHEST XRAY RESULT POST INTUBATION , RADIOLOGIST AWARE ,
[2016-08-24] MEDS: FIBERSOURCE HN 1,000 ML BOTTLE GT PRN (19:25)
[2016-08-24 19:52] LABS: ABG BASE EXCESS 7.4 mmol/L; ABG OXYGEN SATURATION 96.5 % (92.0-98.5); ABG PCO2 44.2 mmHg (35.0-45.0); ABG PH 7.474 (7.350-7.450); ABG TOTAL HEMOGLOBIN 9.5 G/dL (13.5-18.0); AaDO2 215.8 mmHg; COHb 0.2 % (0.5-1.5); MetHb 0.9 % (0.0-1.5); O2Hb 95.4 % (94.0-97.0); PEEP,BG 5 cm H2O; SITE, ABG Right Radial; VENT MODE, BG AC 12 550 50% +5; VT, ABG 550 mL
[2016-08-24] MEDS ORDERED: SUCCINYLCHOLINE CHLORIDE 20 MG/ML VIAL IV ONE (20:20)
[2016-08-24] MEDS ORDERED: ETOMIDATE 2 MG/ML VIAL IV ONE (20:20)
--- NOTE | 2016-08-24 20:34 | NUR ---
pt received on vent via ett, settings as charted ambu bag at bedside alarms set and audible breath sounds equal bilateral coarse suctioned a small amount of thin clear secretions pt receiving albuterol and atrovent q6 mucomyst q8 Addendum: 08/24/16 at 2037 by WAYNE OLIVEIRA RT Amended: Links added.
[2016-08-24] MEDS: MORPHINE SULFATE INJ 2 MG/ML DISP.SYRIN IV PRN (22:46)
--- NOTE | 2016-08-24 22:46 | NUR ---
COURTROOM CLERK PT IS SHOWING SIGNS OF PAIN. PT IS RESTLESS, FACIAL GRIMACING, AND POINTING AT ETT . REPOSITIONED PT AND PRN MORPHINE GIVEN.
[2016-08-24] MEDS: IV NS 0.9% 250 ML IV PRN (23:05)
[2016-08-25] VITALS (37 sets, daily range): BP systolic 88–127; BP diastolic 51–72
[2016-08-25] MEDS: ACETYLCYSTEINE 10% SOLN 400 MG/4 ML VIAL NEB SCH ×4 (00:08→23:30)
[2016-08-25] MEDS: ALBUTEROL HALF STRENGTH 1.25 MG/3 ML VIAL.NEB NEB SCH ×4 (01:44→20:16)
[2016-08-25] MEDS: IPRATROPIUM NEB FS 0.5 MG/2.5 ML AMPUL.NEB NEB SCH ×4 (01:44→20:16)
[2016-08-25] MEDS: VANCOMYCIN 1 GM in IV D5W 250 ML IV SCH ×2 (03:13→21:35)
[2016-08-25 04:44] LABS: CALCIUM, SERUM 7.3 mg/dL (8.5-10.1); CREATININE 0.8 mg/dL (0.6-1.3); POTASSIUM 3.7 mmol/L (3.5-5.1)
[2016-08-25] MEDS: PIPERACILLIN /TAZOBACTAM 3.375 G in IV D5W 50 ML IV SCH ×3 (06:20→18:07)
--- NOTE | 2016-08-25 07:15 | NUR ---
INTELLIGENCE MANAGER NOTES RECEIVED PATIENT AWAKE , LETHARGIC , RESPONSIVE TO VERBAL STIMULI , NOT IN ACUTE DISTRESS , RESPIRATIONS EVEN AND UNLABORED , SPO2 OF 100% VIA MECHANICAL VENTILATOR SETTINGS ORDERED , ETT 7.5/[address] , SB 54 ON BEDSIDE MONITOR , FC DRAINING WELL VIA GRAVITY WITH CLEAR YELLOW URINE URINE , ON KCI MATTRESS , BILATERAL SOFT WRIST IN PLACE , VISUAL CHECK PER PROTOCOL , R NARE NGT IN PLACE VERIFIED PLACEMENT VIA AUSCULTATION NOTED WITH GURGLING SOUND AROUND THE STOMACH , TUBE FEEDING OF FIBERSOURCE @ 55ML/HR INFUSING WELL WITH NO RESIDUALS NOTED , ON KCI MATTRESS , PASHA PICC LINE PATENT AND INTACT WITH NS @ TKO , ALL NEEDS ATTENDED , BED ON LOW AND LOCKED POSITION , SIDE RAILSX2 , CALL LIGHT WITHIN REACH , HOB @ 45 , WILL CONTINUE TO MONITOR .
[2016-08-25] MEDS: PANTOPRAZOLE 40 MG VIAL IV SCH (08:24)
[2016-08-25] MEDS: LACTOBACILLUS RHAMNOSUS GG 1 EACH CAP.SPRINK PO SCH ×2 (08:24→16:56)
[2016-08-25] MEDS: Z GUARD REMEDY 2 OZ OINT TP PRN (08:26)
--- NOTE | 2016-08-25 09:20 | NUR ---
PIGMENT WEIGHER NOTES DR DIAZ SEEN AND EVALUATED THE PT , NOTIFIED PT WAS RE INTUBATED YESTERDAY , DISCUSSED ABG POST EXTUBATION AND INTUBATION , TOLERATING CURRENT VENTILATOR SETTINGS , WITH SPO2 OF 100% , AWAKE , ALERT , RESPONSIVE TO VERBAL STIMULI, OFF SEDATION , MD AWARE
--- NOTE | 2016-08-25 13:35 | NUR ---
PACKAGING MACHINE SUPPLIES DISTRIBUTOR NOTES DR SEE AT BEDSIDE , NOTIFIED PT LABS , CHEST XRAY , ABG RESULT , TOLERATING CURRENT VENTILATOR SETTINGS WITH SPO2 OF 100% , AFEBRILE , BP WNL , OFF SEDATION , TOLERATING TUBE FEEDINGS , PENDING ORELLANA TRANSFER , VERIFIED IF HE WANTS TO ORDER CBC , PER MD NO CBC AT THIS TIME ,
[2016-08-25] MEDS: MORPHINE SULFATE INJ 2 MG/ML DISP.SYRIN IV PRN ×2 (14:43→21:35)
[2016-08-25] MEDS ORDERED: ACETYLCYSTEINE 10% SOLN 400 MG/4 ML VIAL NEB SCH (16:30)
[2016-08-25] MEDS: ENOXAPARIN SODIUM 30 MG/0.3 ML DISP.SYRIN SQ SCH (16:57)
[2016-08-25] MEDS: FIBERSOURCE HN 1,000 ML BOTTLE GT PRN (16:58)
--- NOTE | 2016-08-25 19:06 | NUR ---
GLASS LOADING EQUIPMENT TENDER NOTES PATIENT STABLE AT THIS TIME , NOT IN ACUTE DISTRESS , RESPIRATIONS EVEN AND UNLABORED , SPO2 OF 100% VIA MECHANICAL VENTILATOR SETTINGS ORDERED , ETT 7.[address] , SR 66 ON BEDSIDE MONITOR , FC DRAINING WELL VIA GRAVITY WITH CLEAR YELLOW URINE URINE , ON KCI MATTRESS , BILATERAL SOFT WRIST IN PLACE , VISUAL CHECK PER PROTOCOL , R NARE NGT IN PLACE , TUBE FEEDING OF FIBERSOURCE @ 55ML/HR INFUSING WELL , ON KCI MATTRESS , PASHA PICC LINE PATENT AND INTACT WITH NS @ TKO , ALL NEEDS ATTENDED , BED ON LOW AND LOCKED POSITION , SIDE RAILSX2 , CALL LIGHT WITHIN REACH , HOB @ 45 , REPORT GIVEN TO FÁTIMA FOR CONTINUITY OF CARE
[2016-08-25] MEDS: IV NS 0.9% 250 ML IV PRN (21:40)
--- NOTE | 2016-08-25 21:45 | NUR ---
FIBERGLASS BOAT ASSEMBLY SUPERVISOR PT IS SHOWING SIGNS OF PAIN. PT REPOSITIONED . PRN MORPHINE GIVEN .
--- NOTE | 2016-08-25 22:15 | NUR ---
PTISNO LONGERSHOWING SIGNS OF PAIN , CONT TO MONITOR.
[2016-08-26] VITALS (31 sets, daily range): BP systolic 100–133; BP diastolic 32–113
[2016-08-26] MEDS: PIPERACILLIN /TAZOBACTAM 3.375 G in IV D5W 50 ML IV SCH ×4 (00:02→17:45)
[2016-08-26] MEDS: ALBUTEROL HALF STRENGTH 1.25 MG/3 ML VIAL.NEB NEB SCH ×4 (02:21→19:24)
[2016-08-26] MEDS: IPRATROPIUM NEB FS 0.5 MG/2.5 ML AMPUL.NEB NEB SCH ×4 (02:21→19:24)
--- NOTE | 2016-08-26 04:00 | NUR ---
ENVIRONMENTAL SCIENCE PROFESSOR BED BATH GIVEN AND TOLERATED WELL. NO DISTRESS NOTED.
[2016-08-26 05:15] LABS: CALCIUM, SERUM 7.5 mg/dL (8.5-10.1); CREATININE 0.8 mg/dL (0.6-1.3); POTASSIUM 3.9 mmol/L (3.5-5.1)
[2016-08-26] MEDS: ACETYLCYSTEINE 10% SOLN 400 MG/4 ML VIAL NEB SCH ×2 (07:03→15:08)
[2016-08-26] MEDS: PANTOPRAZOLE 40 MG VIAL IV SCH (08:26)
[2016-08-26] MEDS: LACTOBACILLUS RHAMNOSUS GG 1 EACH CAP.SPRINK PO SCH ×2 (08:26→16:02)
--- NOTE | 2016-08-26 08:39 | NUR ---
SIMV WEAN INITIATED, PER DR. GAO ORDERS.
--- NOTE | 2016-08-26 08:45 | NUR ---
PT REMAINS ORALLY INTUBATED VIA 7.5 ETT AT 24CM AT THE LIP. PT PLACED ON SIMV MODE PER DR. DIAZ REQUEST. PT IS AWAKE AND ALERT. ALARMS SET AND AUDIBLE PER POLICY. WILL DO ABG AN HOUR POST SIMV CHANGES. VENT PLUGGED INTO RED OUTLET. AMBU BAG AT [facility]. VENT PLUGGED INTO RED OUTLET. WILL CONTINUE TO MONITOR PT. Addendum: 08/26/16 at 0859 by ERON DAVEY RT Amended: Links added.
[2016-08-26] MEDS ORDERED: IV SET PRIMARY PUMP SET 1 EA INFUS.SET MC ONE (09:38)
[2016-08-26 10:56] LABS: ABG BASE EXCESS 6.9 mmol/L; ABG OXYGEN SATURATION 99.1 % (92.0-98.5); ABG PCO2 43.2 mmHg (35.0-45.0); ABG PH 7.475 (7.350-7.450); ABG PO2 231.8 mmHg (75.0-100.0); ABG TOTAL HEMOGLOBIN 6.8 G/dL (13.5-18.0); AaDO2 3.7 mmHg; COHb 1.9 % (0.5-1.5); MetHb 1.5 % (0.0-1.5); O2Hb 95.7 % (94.0-97.0); PEEP,BG 5 cm H2O; SITE, ABG Left Radial
--- NOTE | 2016-08-26 11:01 | NUR ---
DR. DIAZ SHOWN THE ABG RESULTS. HE ORDERS TO KEEP PT ON SIMV MODE AND TITRATE FIO2 DOWN. RT AT BEDSIDE AWARE. ABG HEMOGLOBIN 6.8, DR. DIAZ ORDERS STAT CBC.
[2016-08-26 11:07] LABS: BASOPHILS % (AUTO) 0.2 % (0.0-2.0); EOSINOPHILS # (AUTO) 0.1 /CMM (0.0-0.7); EOSINOPHILS % (AUTO) 1.3 % (0.0-6.0); HEMATOCRIT 25 % (39-51); HEMOGLOBIN 8.4 g/dL (13.5-17.5); LYMPHOCYTES # (AUTO) 1.1 /CMM (0.8-4.8); LYMPHOCYTES % (AUTO) 13.4 % (20.0-44.0); MEAN CORPUSCULAR HEMOGLOBIN 32 PG (26.0-33.0); MEAN CORPUSCULAR HGB CONC 33 g/dl (31.0-36.0); MEAN CORPUSCULAR VOLUME 97 fL (80-96); MONOCYTES # (AUTO) 0.4 /CMM (0.1-1.30); NEUTROPHILS # (AUTO) 6.3 /CMM (1.8-8.9); NEUTROPHILS % (AUTO) 80.1 % (43.0-81.0); PLATELET COUNT (AUTO) 245 /CMM (150-450); RDW COEFFICIENT OF VARIATION 14.8 (11.5-15.0); RED BLOOD CELL COUNT(AUTO) 2.61 MIL/uL (4.5-6.0); WHITE BLOOD COUNT (AUTO) 7.9 K/uL (4.3-11.0)
--- NOTE | 2016-08-26 11:28 | NUR ---
DR. SEE ON THE UNIT. MADE AWARE OF ABG RESULTS ON SIMV MODE AND ABG HEMOGLOBIN. HE ORDERS FOR CBC, OKAY TO ADD TO AM LAB DRAWS.
--- NOTE | 2016-08-26 15:00 | NUR ---
CASE MGMT, CALLS ROOM AVAILIABLE AT [place] ICU TRANSFER PER DR. SEE'S ORDERS. DR. DIAZ ON THE UNIT. HE ORDERS TO TRANSFER THE PATIENT ON FULL ASSIST AC 12, TV 550, FIO2 50% PEEP 5. CALLED GAVE REPORT TO LAURO IN ICU AT [place] [phone]. Addendum: 08/26/16 at 1516 by ISI WAN RN DR. SEE NOTIFIED ABOUT [facility] OPEN BED. HE ORDERS TO CONTINUE CURRENT MEDICATIONS AND TRANSFER PT TO [place] ICU.
[2016-08-26] MEDS: VANCOMYCIN 1 GM in IV D5W 250 ML IV SCH (15:48)
[2016-08-26] MEDS: FIBERSOURCE HN 1,000 ML BOTTLE GT PRN (17:29)
[2016-08-26] MEDS: ENOXAPARIN SODIUM 30 MG/0.3 ML DISP.SYRIN SQ SCH (17:35)
--- NOTE | 2016-08-26 18:27 | NUR ---
PT IS GOING TO [place], PLACED BACK TO AC 12, VT 550, FIO2 50%, PEEP +5. RN IS FULLY AWARE. Addendum: 08/26/16 at 1830 by NIKOLAI SALES RT Amended: Links added.
[2016-08-26] MEDS ORDERED: SECONDARY IV SET 1 EA INFUS.SET MC ONE (19:54)
--- NOTE | 2016-08-26 20:48 | NUR ---
AMBULANCE HERE FOR PICKUP ACLS TRANSFER TO [place]. REPORT GIVEN TO LAURO AT [place] ICU.
[2016-08-26] MEDS ORDERED: ATORVASTATIN 10 MG TABLET NG SCH (22:00)
== END 2016-08-26 20:40 | disposition short-term general hospital (02) | DRG 870 ==
LOC: ER 07:35 → ICU 09:53
PROVIDERS: ADMIT Internal Medicine; ATTEND Internal Medicine
PROC: 5A1955Z Respiratory Ventilation, Greater than 96 Consecutive Hours (ICD-10-PCS; principal; 2016-08-17)
PROC: 0BH18EZ Insertion of Endotracheal Airway into Trachea, Via Natural or Artificial Opening Endoscopic (ICD-10-PCS; 2016-08-17)
PROC: 02HV33Z Insertion of Infusion Device into Superior Vena Cava, Percutaneous Approach (ICD-10-PCS; 2016-08-18)
PROC: B548ZZA Ultrasonography of Superior Vena Cava, Guidance (ICD-10-PCS; 2016-08-18)
DX: A41.9 Sepsis, unspecified organism (principal); J69.0 Pneumonitis due to inhalation of food and vomit; J96.01 Acute respiratory failure with hypoxia; G93.40 Encephalopathy, unspecified; R65.21 Severe sepsis with septic shock; I71.3 Abdominal aortic aneurysm, ruptured; J96.02 Acute respiratory failure with hypercapnia; E46 Unspecified protein-calorie malnutrition; F02.81 Dementia in other diseases classified elsewhere, unspecified severity, with behavioral disturbance; J90 Pleural effusion, not elsewhere classified; R64 Cachexia; G30.9 Alzheimer's disease, unspecified; D69.6 Thrombocytopenia, unspecified; I25.10 Atherosclerotic heart disease of native coronary artery without angina pectoris; E87.6 Hypokalemia; I10 Essential (primary) hypertension; F41.9 Anxiety disorder, unspecified; K21.9 Gastro-esophageal reflux disease without esophagitis; Z93.1 Gastrostomy status; Z90.49 Acquired absence of other specified parts of digestive tract; J44.9 Chronic obstructive pulmonary disease, unspecified; M81.0 Age-related osteoporosis without current pathological fracture; L53.8 Other specified erythematous conditions; L98.8 Other specified disorders of the skin and subcutaneous tissue; I73.9 Peripheral vascular disease, unspecified; L89.611 Pressure ulcer of right heel, stage 1; L89.511 Pressure ulcer of right ankle, stage 1; L89.620 Pressure ulcer of left heel, unstageable; S80.01XA Contusion of right knee, initial encounter; X58.XXXA Exposure to other specified factors, initial encounter; Y93.9 Activity, unspecified; Y92.129 Unspecified place in nursing home as the place of occurrence of the external cause; D63.8 Anemia in other chronic diseases classified elsewhere; E87.70 Fluid overload, unspecified
CPT/HCPCS: 31720; 36415; 36600; 71010-TC; 80048-TC; 80076-TC; 80202-TC; 81000-TC; 82803-TC; 83605-TC; 83735-TC; 83880; 84100-TC; 84484-TC; 85025-TC; 85730-TC; 87040-TC; 87070-TC; 87081-TC; 87086-TC; 94002-TC; 94003-TC; 94760-TC; 94799-TC; 99082-TC; A4349; A4606; A6403; C1751; C9113; J0330; J1650; J1956; J2270; J2543; J3370; J3475; J3480; J3490; J7030; J7040; J7042; J7050; J7060; Z7610

== ENCOUNTER 2017-11-22 18:54 | Inpatient (IN) | payer MEDICARE, OTHER ==
[~2017-11-22] VITALS: Ht 170.2 cm; Wt 51.9 kg
--- NOTE | 2017-11-22 18:54 | NUR ---
[id number] FROM [facility] FOR "POSSIBLE ASPIRATION" WHILE EATING. VSS NAD A/OX1 ABLE TO TRACK WITH EYES BUT OTHERWISE DOES NOT SPEAK MUCH. WILL CONTINUE TO MONITOR FOR ANY CHANGES DURING THE SHIFT.
--- NOTE | 2017-11-22 18:55 | NUR ---
ER MD RODRIGUEZ AT BEDSIDE FOR EVAL
[2017-11-22 20:56] LABS: BASOPHILS % (AUTO) 0.3 % (0.0-2.0); EOSINOPHILS % (AUTO) 0.3 % (0.0-6.0); HEMATOCRIT 33 % (39-51); HEMOGLOBIN 11.2 g/dL (13.5-17.5); LYMPHOCYTES # (AUTO) 0.8 /CMM (0.8-4.8); LYMPHOCYTES % (AUTO) 8.5 % (20.0-44.0); MEAN CORPUSCULAR HEMOGLOBIN 35 PG (26.0-33.0); MEAN CORPUSCULAR HGB CONC 35 g/dl (31.0-36.0); MEAN CORPUSCULAR VOLUME 101 fL (80-96); MONOCYTES # (AUTO) 0.5 /CMM (0.1-1.30); MONOCYTES % (AUTO) 5.3 % (2.0-12.0); NEUTROPHILS # (AUTO) 8.6 /CMM (1.8-8.9); NEUTROPHILS % (AUTO) 85.6 % (43.0-81.0); PLATELET COUNT (AUTO) 115 /CMM (150-450); RDW COEFFICIENT OF VARIATION 14.1 (11.5-15.0); RED BLOOD CELL COUNT(AUTO) 3.24 MIL/uL (4.5-6.0); WHITE BLOOD COUNT (AUTO) 9.9 K/uL (4.3-11.0)
[2017-11-22 20:59] LABS: CALCIUM, SERUM 8.5 mg/dL (8.5-10.1); CARBON DIOXIDE 29 mmol/L (21-32); CHLORIDE 106 mmol/L (98-107); GLUCOSE 160 mg/dL (74-106); POTASSIUM 4.2 mmol/L (3.5-5.1); SODIUM SERUM 140 mmol/L (136-145); UREA NITROGEN, BLOOD 22 mg/dL (7-18)
[2017-11-22 21:08] LABS: TROPONIN I 0.077 ng/mL (0.00-0.056)
[2017-11-22] MEDS ORDERED: ASPIRIN 81 MG TAB.CHEW PO ONE (21:30)
[2017-11-22] MEDS ORDERED: ASPIRIN 81 MG TAB.CHEW ONE (21:31)
--- NOTE | 2017-11-22 21:41 | NUR ---
CALLED DR. SEE'S OFFICE, RASHEEDA TIDWELL CONCRETE FLOOR INSTALLER, LEFT MESSAGE ON VOICEMAIL
--- NOTE | 2017-11-22 22:08 | NUR ---
CALLED NURSING SUP. FOR TELE BED
--- NOTE | 2017-11-22 22:23 | NUR ---
TELE 323-2 FOR NSTEMI, RASHEEDA TIDWELL NP ADMITTING
[2017-11-22] MEDS ORDERED: VALS80TA2 PO (22:59)
[2017-11-22] MEDS ORDERED: LACT10SO PO (22:59)
[2017-11-22] MEDS ORDERED: BISA-57 RC (22:59)
[2017-11-22] MEDS ORDERED: MEMA10TA PO (22:59)
[2017-11-22] MEDS ORDERED: MAG30ORA PO (22:59)
[2017-11-22] MEDS ORDERED: PANT40TA4 PO (22:59)
[2017-11-22] MEDS ORDERED: NA P133E RC (22:59)
[2017-11-22] MEDS ORDERED: AMLO5TAB4 PO (22:59)
[2017-11-22] MEDS ORDERED: DOCU100C36 PO (22:59)
[2017-11-22 23:00] VITALS: BP 113/65
--- NOTE | 2017-11-22 23:10 | NUR ---
MINE ANALYST RECEIVING NOTES RECEIVED PATIENT FROM ER [facility]IA [facility] WITH DX. OF NSTEMI. ALERT AND ORIENTED X1, CONFUSED, VERBALLY RESPONSIVE. BREATHING EVEN AND UNLABORED. NO SOB NOTED. ON O2 @ 3LPM - TOLERATING WELL. PATIENT NOTED WITH IV LINE ON RIGHT HAND #22 - INTACT AND PATENT. NO COMPLAINTS OF PAIN OR DISCOMFORT. KEPT NPO TILL EVALUATED. ALL OTHER NEEDS ATTENDED TO. CALL LIGHT WITHIN REACH. BED ON LOWEST LOCKED POSITION. WILL CONTINUE TO MONITOR.
--- NOTE | 2017-11-23 00:30 | NUR ---
RADIO INSTALLER NOTE: CALLED DR. SEE OFFICE, SPOKE TO SILVERING DEPARTMENT SUPERVISOR , DR. RASHEEDA TIDWELL AND RECEIVED ADMIT ORDERS. ORDERS NOTED AND CARRIED OUT. WILL CONTINUE TO MONITOR.
[2017-11-23 00:35] VITALS: BP 106/52
[2017-11-23] MEDS ORDERED: IV NS 0.9% 1,000 ML IV SCH (03:00)
--- NOTE | 2017-11-23 03:15 | NUR ---
BRICK CARRIER NOTE: INFORMED BY AUTOMATIC OUTSOLE CUTTER THAT PATIENT HAD EPISODES OF A PAUSE OF HEART FOR 2 SECONDS OR SO. CHECKED PATIENT AND PATIENT IS RESTING COMFORTABLE IN BED, NO ACUTE DISTRESS NOTED. CALLED RT TO GET EKG FOR PATIENT. WILL CONTINUE TO MONITOR.
[2017-11-23 04:00] VITALS: BP 119/68
[2017-11-23] MEDS ORDERED: MAG HYDROX/AL HYDROX/SIMETH 30 ML UDC PO SCH (07:30)
[2017-11-23] MEDS ORDERED: LACTULOSE 10 G/15 ML UDC (PYXIS) PO PRN (07:30)
[2017-11-23] MEDS ORDERED: BISACODYL (5 MG) 5 MG TABLET.DR PO PRN (07:30)
[2017-11-23] MEDS ORDERED: PANTOPRAZOLE 40 MG TABLET.DR PO SCH (07:30)
[2017-11-23] MEDS ORDERED: NA PHOS,M-B/NA PHOS,DI-BA 1 EA ENEMA RC PRN (07:30)
--- NOTE | 2017-11-23 07:30 | NUR ---
GALVANIZING POT RUNNER OPENINGNOTES PATIENT IN BED ASLEEP. EASILY AROUSABLE TO VERBAL OR TACTILE STIMULI. ALERT AND ORIENTED X1, CONFUSED, VERBALLY RESPONSIVE WHEN AWAKE. BREATHING EVEN AND UNLABORED. NO SOB NOTED. ON O2 @ 3LPM - TOLERATING WELL. PATIENT WITH IV LINE ON RIGHT HAND #22 - INTACT AND PATENT. CURRENTLY INFUSING NS @ 70ML/HR. NO S/S OF PAIN OR DISCOMFORT. KEPT CLEAN, DRY, AND COMFORTABLE. ALL OTHER NEEDS ATTENDED TO. CALL LIGHT WITHIN REACH. BED ON LOWEST LOCKED POSITION, HOB ELEVATED, SIDERAILS UPX2. WILL CONTINUE TO MONITOR ACCORDINGLY
--- NOTE | 2017-11-23 07:52 | NUR ---
ASSOCIATE DIRECTOR QA CLOSING NOTES PATIENT IN BED ASLEEP. EASILY AROUSABLE TO VERBAL OR TACTILE STIMULI. ALERT AND ORIENTED X1, CONFUSED, VERBALLY RESPONSIVE WHEN AWAKE. BREATHING EVEN AND UNLABORED. NO SOB NOTED. ON O2 @ 3LPM - TOLERATING WELL. PATIENT WITH IV LINE ON RIGHT HAND #22 - INTACT AND PATENT. CURRENTLY INFUSING NS @ 70ML/HR. NO S/S OF PAIN OR DISCOMFORT. KEPT NPO TILL EVALUATED. KEPT CLEAN, DRY, AND COMFORTABLE. ALL OTHER NEEDS ATTENDED TO. CALL LIGHT WITHIN REACH. BED ON LOWEST LOCKED POSITION. WILL ENDORSE TO ONCOMING RN FOR CONTINUITY OF CARE
[2017-11-23 08:00] VITALS: BP 114/59
[2017-11-23] MEDS: DOCUSATE SODIUM 100 MG CAPSULE PO SCH ×2 (09:17→17:00)
[2017-11-23] MEDS: MEMANTINE HCL 5 MG TABLET PO SCH (09:18)
[2017-11-23] MEDS: AMLODIPINE BESYLATE 5 MG TABLET PO SCH (09:20)
[2017-11-23] MEDS: VALSARTAN 80 MG TABLET PO SCH (09:22)
[2017-11-23] MEDS ORDERED: IV NS 0.9% 1,000 ML IV PRN (09:34)
--- NOTE | 2017-11-23 09:57 | NUR ---
RN NOTES CALLED [facility],PHARMACY TO CHANGE PROTONIX TAB TO OS PACK. WILL CHANGE IT PER CRES[facility]. OPENED PROTONIX TAB WASTED.
[2017-11-23] MEDS: PANTOPRAZOLE 40 MG/PACK PACK GT SCH (12:30)
[2017-11-23] MEDS ORDERED: ALBUTEROL HALF STRENGTH 1.25 MG/3 ML VIAL.NEB NEB PRN (14:00)
[2017-11-23 14:23] LABS: ALANINE AMINOTRANSFERASE 41 U/L (12-78); ALBUMIN 2.8 g/dL (3.4-5.0); ALKALINE PHOSPHATASE 83 U/L (46-116); ASPARTATE AMINOTRANSFERASE 37 U/L (15-37); BILIRUBIN,TOTAL 0.5 mg/dL (0.2-1.0); CALCIUM, SERUM 7.6 mg/dL (8.5-10.1); CARBON DIOXIDE 28 mmol/L (21-32); CHLORIDE 107 mmol/L (98-107); CREATININE 0.8 mg/dL (0.6-1.3); GLUCOSE 95 mg/dL (74-106); POTASSIUM 4.4 mmol/L (3.5-5.1); SODIUM SERUM 139 mmol/L (136-145); TOTAL PROTEIN, SERUM 6.2 g/dL (6.4-8.2); UREA NITROGEN, BLOOD 19 mg/dL (7-18)
--- NOTE | 2017-11-23 15:20 | NUR ---
CONSENT NEEDED FOR CTA WITH CONTRAST. PATIENT IS CONFUSED. VERIFIED AT [facility], PATIENT HAS NO FAMILY AND ALSO PATIENT HAS NKA. NOTIFIED DR SEE.
[2017-11-23 16:00] VITALS: BP 117/66
--- NOTE | 2017-11-23 17:18 | NUR ---
RN NOTES NOTIFIED DR SEE REGARDING PATIENTS KEEPS HAVING A LOT OF EPISODES OF BRADYCARDIA (HR 30s) AND SEVERAL PAUSES THAT LASTED MORE THAN 2 SECONDS. PATIENT IS ASYMPTOMATIC. NO NEW ORDERS PER DR SEE.
--- NOTE | 2017-11-23 19:30 | NUR ---
RN CLOSING NOTES PATIENT IN STABLE CONDITION. ALL NEEDS ATTENDED AND PROVIDED. KEPT PATIENT SAFE AND COMFORTABLE. TURNED AND REPOSITION PATIENT EVERY 2 HRS NEEDED. BED IN LOW/LOCKED POSITION, SEMIFOWLERS, SIDERAILS UPX2, CALL LIGHT IN REACH. ENDORSED TO NIGHT RN FOR RENEA.
--- NOTE | 2017-11-23 19:33 | NUR ---
MS RN OPENING NOTE RECEIVE PATIENT AWAKE IN BED, A/O X 1, STABLE NO FACIAL GRIMACING NOTED FOR PAIN. NO SOB OR DISTRESS NOTED, CALL LIGHT WITHIN REACH. SAFETY MEASURES IMPLEMENTED. WILL CONTINUE TO MONITOR THROUGHOUT SHIFT.
[2017-11-23 20:00] VITALS: BP 117/65
[2017-11-23] MEDS: ATORVASTATIN 10 MG TABLET PO SCH (21:03)
[2017-11-24] VITALS: BP 141/72
[2017-11-24 04:00] VITALS: BP 124/74
--- NOTE | 2017-11-24 06:05 | NUR ---
SPECIAL EDUCATION PARAPROFESSIONAL CLOSING NOTES PT COMFORTABLY ASLEEP AND EASILY AWAKEN, A/O X 1, ASSISTED REPOSITION EVERY 2 HOURS, ON 2 LPM VIA NC 02 SAT AT 94% STABLE CONDITION. RESPIRATION EVEN AND UNLABORED. KEPT CLEAN AND DRY AND COMFORTABLE, ALL NURSING CARE RENDERED. NEEDS ATTENDED AND ANTICIPATED, GOOD SKIN CARE PROVIDED. ON LOW BED AT ALL TIMES TO ENSURE SAFETY. SAFE HAZARD FREE ENVIRONMENT PROVIDED. NOT IN DISTRESS, SR SB 55'S ATTACH TO TELE MONITOR, CALL LIGHT WITHIN EASY TO REACH. WILL ENDORSE NEXT SHIFT CONTINUITY OF CARE.
[2017-11-24 08:00] VITALS: BP 158/78
[2017-11-24] MEDS: DOCUSATE SODIUM 100 MG CAPSULE PO SCH ×2 (09:00→17:11)
[2017-11-24 16:00] VITALS: BP 136/91
[2017-11-24] MEDS: PANTOPRAZOLE 40 MG/PACK PACK GT SCH (17:08)
[2017-11-24] MEDS: ASPIRIN EC 81 MG TABLET.DR PO SCH (17:08)
[2017-11-24] MEDS: VALSARTAN 80 MG TABLET PO SCH (17:09)
[2017-11-24] MEDS: MEMANTINE HCL 5 MG TABLET PO SCH (17:11)
[2017-11-24] MEDS: AMLODIPINE BESYLATE 5 MG TABLET PO SCH (17:11)
--- NOTE | 2017-11-24 17:25 | NUR ---
priscillavan held as pulse ranging from 30-47 most of day.
[2017-11-24] MEDS: NEOMY SULF/BACITRAC ZN/POLY 15 GM TUBE TP SCH (17:32)
--- NOTE | 2017-11-24 18:00 | NUR ---
initially pt. npo in am for cta of abdomen,then dr. medina came in and dc'd cta and changed order to aorta ultrasound,completed and pt's meds started and fed dinner.richard ramirez in and wrote wd. orders.
--- NOTE | 2017-11-24 19:50 | NUR ---
TELE/DRAWER FITTER; RECEIVED PT IN BED AWAKE , WITH CONFUSION. VERBALLY RESPONSIVE WHEN ASKED. BREATHING NON LABORED. ON TELEMETRY. BED ON LOWER POSITION AND LOCKED FOR SAFETY. SIDE RAILS ARE UP FOR SAFETY. CALL LIGHT WITHIN REACH. HL ON RAC INTACT. WILL CONTINUE TO MONITOR.
[2017-11-24 20:00] VITALS: BP 110/66
[2017-11-24] MEDS ORDERED: MUPIROCIN OINT 2% 22 GM TUBE SCH (21:00)
[2017-11-24] MEDS: CARVEDILOL 3.125 MG TABLET PO SCH (21:00)
--- NOTE | 2017-11-24 21:30 | NUR ---
TELE/SPIRAL MACHINE OPERATOR; COREG 3.125 MG PO Q 12 NOT GIVEN HR IS LOW 55 AND CHARGE NURSE MADE AWARE.
[2017-11-24] MEDS: ATORVASTATIN 10 MG TABLET PO SCH (21:38)
[2017-11-24] MEDS: CEFTRIAXONE 1 G in IV D5W 50 ML IV SCH (21:41)
[2017-11-25] VITALS: BP 121/87
[2017-11-25 04:00] VITALS: BP 134/81
--- NOTE | 2017-11-25 06:33 | NUR ---
TELE/FLASK HANDLER; PT SLEPT FAIRLY . BREATHING NON LABORED. INCONTINENT OF URINE. NO BM. AM CARE DONE BY THE KNIT TUBING DYER. TURNED AND REPOSITIONED FOR COMFORT. PT ON SB 43. WILL CONTINUE TO MONITOR. CALL LIGHT WITHIN REACH. WILL ENDORSE TO THE DAY SHIFT NURSE FOR CONTINUITY OF CARE.
--- NOTE | 2017-11-25 07:25 | NUR ---
RN OPENING NOTES RECEIVED PT. PT IS STABLE AND RESTING IN BED. NO S/S OF RESP DISTRESS OR SOB. A/OX2, PT HAS EPISODES OF CONFUSION. A/OX1-2. IV ACCESS LOCATED ON RAC 18G, CURRENTLY SL. TELE MONITOR IN PLACE, PT HR IS CURRENTLY NICOLE HOWEVER ELEVATES SPONTANEOUSLY. SAFETY MEASURES IN PLACE, CALL LIGHT WITHIN REACH. WILL CONTINUE TO MONITOR.
[2017-11-25 08:00] VITALS: BP 143/103
[2017-11-25] MEDS: PANTOPRAZOLE 40 MG/PACK PACK GT SCH (08:24)
[2017-11-25] MEDS: MEMANTINE HCL 5 MG TABLET PO SCH (08:24)
[2017-11-25] MEDS: DOCUSATE SODIUM 100 MG CAPSULE PO SCH ×2 (08:24→17:00)
[2017-11-25] MEDS: ASPIRIN EC 81 MG TABLET.DR PO SCH (08:24)
[2017-11-25] MEDS: NEOMY SULF/BACITRAC ZN/POLY 15 GM TUBE TP SCH (08:25)
[2017-11-25] MEDS: VALSARTAN 80 MG TABLET PO SCH (08:26)
[2017-11-25] MEDS: CARVEDILOL 3.125 MG TABLET PO SCH (08:26)
[2017-11-25] MEDS ORDERED: IV NS 0.9% 1,000 ML IV PRN (11:53)
[2017-11-25] MEDS: NITROGLYCERIN 30 GM TUBE TP SCH ×2 (12:00→21:00)
--- NOTE | 2017-11-25 13:30 | NUR ---
RN NOTES NITRO TOPICAL ADMIN DELAYED, NOT AVAILABLE IN [place]. PHARMACY AWARE, AWAITING MEDICATION FOR ADMIN.
[2017-11-25 16:00] VITALS: BP 122/79
--- NOTE | 2017-11-25 19:37 | NUR ---
RN CLOSING NOTE PT IN BED RESTING. NO S/S OF RESP DISTRESS OR SOB. NO C/O PAIN. ALL PT NEEDS ANTICIPATED AND MET. SAFETY MEASURES IN PLACE, CALL LIGHT IN REACH. WILL ENDORSE TO RISK AND INSURANCE CONSULTANT FOR RENEA.
--- NOTE | 2017-11-25 19:37 | NUR ---
RN CLOSING NOTE PT IN BED RESTING. NO S/S OF RESP DISTRESS OR SOB. NO C/O PAIN. ALL PT NEEDS ANTICIPATED AND MET. SAFETY MEASURES IN PLACE, CALL LIGHT IN REACH. WILL ENDORSE TO BICYCLE FITTER FOR RENEA.
--- NOTE | 2017-11-25 19:38 | NUR ---
TELE/RN OPENING NOTES PT RECEIVED AWAKE, RESTING COMFORTABLY IN BED. A/OX1. CONFUSED. ON ROOM AIR, BREATHING EVEN AND UNLABORED. NO S/S OF DISTRESS OR PAIN AT THIS TIME. ON TELE MONITOR SHOWING SB 57. IV TO RAC PATENT AND INTACT. BED IN LOW/LOCKED POSITION WITH CALL LIGHT IN REACH. SIDE RAILS UPX2 WITH BED ALARM ON FOR SAFETY. WILL CONTINUE TO MONITOR
[2017-11-25 20:00] VITALS: BP 144/82
[2017-11-25] MEDS: CEFTRIAXONE 1 G in IV D5W 50 ML IV SCH (21:52)
[2017-11-25] MEDS: ATORVASTATIN 10 MG TABLET PO SCH (21:52)
--- NOTE | 2017-11-25 22:00 | NUR ---
TELE/RN NOTES HELD NITRO PASTE. FU=[id number]/82, HR=50
[2017-11-26] VITALS: BP 122/79
[2017-11-26 04:00] VITALS: BP 156/80
--- NOTE | 2017-11-26 06:55 | NUR ---
TELE/RN CLOSING NOTES PT AWAKE, RESTING COMFORTABLY IN BED. CONFUSED BUT PLEASANT. PLACED ON 2L O2 VIA NC, SPO2 89%, INCREASED TO 96%. BREATHING EVEN AND UNLABORED. NO S/S OF DISTRESS, PAIN OR SOB. IV TO LEFT FA PATENT AND INTACT RUNNING IVF ORDERED. REORIENTED PRN. ON TELE MONITOR HR CURRENTLY 47. HR RANGING FROM 43 TO 63 THROUGHOUT SHIFT. ASPIRATION PRECAUTIONS IMPLEMENTED THROUGHOUT SHIFT. ALL NEEDS MET. BED REMAINS IN LOW/LOCKED POSITION WITH CALL LIGHT IN REACH. SIDE RAILS UPX2. WILL ENDORSE TO DAY SHIFT RN RENEA.
[2017-11-26 08:00] VITALS: BP 158/81
--- NOTE | 2017-11-26 08:00 | NUR ---
RN NOTES RECEIVED PATIENT IN THE BED. A/O X1, CONFUSED ON TELE MONITOR ON SR 50. PATIENT HAS NO ACUTE RESPIRATORY DISTRESS, V/S STABLE, SCHEDULED MEDICATION ADMINISTERED, ASSIST TURN AND REPOSTION Q 2 HR. NEEDS ATTENDED AND ANTICIPATED, ASSIST EATING, PATIENT MRSA OF NARES. SAFETY PRECAUTION MAINTAINED ALL THE TIME.
[2017-11-26] MEDS: DOCUSATE SODIUM 100 MG CAPSULE PO SCH ×2 (08:34→17:38)
[2017-11-26] MEDS: MEMANTINE HCL 5 MG TABLET PO SCH (08:34)
[2017-11-26] MEDS: NEOMY SULF/BACITRAC ZN/POLY 15 GM TUBE TP SCH (08:36)
[2017-11-26] MEDS: PANTOPRAZOLE 40 MG/PACK PACK GT SCH (08:36)
[2017-11-26] MEDS: NITROGLYCERIN 30 GM TUBE TP SCH (08:38)
[2017-11-26] MEDS ORDERED: VALSARTAN 80 MG TABLET PO SCH (09:00)
--- NOTE | 2017-11-26 13:00 | NUR ---
RN NOTES PATIENT STABLE D/C TELE, PATIENT WILL D/C BACK TO THE SNF. SEEN BY DR ESE. CONTINUED MONITORING.
[2017-11-26 16:00] VITALS: BP 131/71
--- NOTE | 2017-11-26 19:10 | NUR ---
DISCHARGE NOTES PATIENT DISCHARGE AT THIS TIME GOING BACK TO SNF. PATIENT STABLE, V/S STABLE, NO COMPLAINING OF PAIN AT THIS TIME. MED RECONCILIATION AND DISCHARGE ORDER REVIEWED AND EXPLAINED TO. REPORT GIVEN SNF RN . RN VERBALIZED UNDERSTANDING, PATIENT UNABLE TO SIGN PAPERWORK. PICTURE TAKE, PATIENT WILL FOLLOW SNF MD. PATIENT HAS NO BELONGING, NO FAMILY. PATIENT SEMICONDUCTOR WAFERS ETCH OPERATOR BY AMBULANCE.
== END 2017-11-26 18:48 | DRG 280 ==
LOC: ER 19:03 → TELE 22:46 → MED 11-26 09:14
PROVIDERS: ADMIT Internal Medicine; ATTEND Internal Medicine
DX: I21.4 Non-ST elevation (NSTEMI) myocardial infarction (principal); J69.0 Pneumonitis due to inhalation of food and vomit; J96.00 Acute respiratory failure, unspecified whether with hypoxia or hypercapnia; G93.40 Encephalopathy, unspecified; N17.9 Acute kidney failure, unspecified; Z87.891 Personal history of nicotine dependence; J44.9 Chronic obstructive pulmonary disease, unspecified; E78.5 Hyperlipidemia, unspecified; I25.10 Atherosclerotic heart disease of native coronary artery without angina pectoris; Z95.1 Presence of aortocoronary bypass graft; D63.8 Anemia in other chronic diseases classified elsewhere; G30.9 Alzheimer's disease, unspecified; F02.80 Dementia in other diseases classified elsewhere, unspecified severity, without behavioral disturbance, psychotic disturbance, mood disturbance, and anxiety; F39 Unspecified mood [affective] disorder; F29 Unspecified psychosis not due to a substance or known physiological condition; I25.2 Old myocardial infarction; Z87.01 Personal history of pneumonia (recurrent); I71.4 Abdominal aortic aneurysm, without rupture; Z98.890 Other specified postprocedural states; L89.150 Pressure ulcer of sacral region, unstageable; L89.320 Pressure ulcer of left buttock, unstageable; L89.310 Pressure ulcer of right buttock, unstageable; L98.9 Disorder of the skin and subcutaneous tissue, unspecified; C43.9 Malignant melanoma of skin, unspecified; D69.6 Thrombocytopenia, unspecified; I10 Essential (primary) hypertension; K21.9 Gastro-esophageal reflux disease without esophagitis; R00.1 Bradycardia, unspecified
CPT/HCPCS: 36415; 71045-TC; 76770-TC; 80048-TC; 80053-TC; 84484-TC; 85025-TC; 87081-TC; 92526; 92611-TC; 93307-TC; A4606; J0696; J7030; J7050; J7060; Z7610

== ENCOUNTER 2018-10-03 09:14 | Inpatient (IN) | payer MEDICARE, OTHER ==
[~2018-10-03] VITALS: Ht 167.6 cm; Wt 52.6 kg
[~2018-10-03 09:14] MED LIST changes: -ACET325T53 PO; +AMLO5TAB4 PO; +ATOR20TA PO; -BENA20TA78 PO; +BISA-57 RC; +BISA-79 PR; -CRAN425C PO; +DOCU-141 PO; +DOCU100C36 PO; -DONE5TAB3 PO; +LACT10SO PO; +LOSA100T31 PO; +MAG30ORA PO; +MAGN2400 PO; +MAGN400O6 PO; +MEMA10TA PO; -MEMA5TAB PO; +MULT-1185 PO; +NA P133E RC; +NITR1OIN2 TD; +PANT40TA2 PO; +PANT40TA4 PO; -SACC250C6 PO; +VALS80TA2 PO
[2018-10-03] MEDS ORDERED: CEFEPIME 1 GM in IV D5W 50 ML IV ONE (09:30)
[2018-10-03] MEDS ORDERED: IV NS 0.9% 1,000 ML BAG IV ONE (09:30)
[2018-10-03] MEDS ORDERED: VANCOMYCIN 1 GM in IV D5W 250 ML IV ONE (09:30)
--- NOTE | 2018-10-03 09:30 | NUR ---
PER FACILITY STAFF PT MORE LETHARGIC THAN USUAL, NOT EATING, HYPOXIC 87% ON RA. PATIENT PLACED IN BED, ALTERED, ON SIMPLE MASK WITH SPO2 AT 96%, PATIENT PLACED ON THE MONITOR, LABS DRAWN AND SENT TO LAB, UA OBTAINED AND SENT. WILL MONITOR.
[2018-10-03 09:34] LABS: BASOPHILS % (AUTO) 0.4 % (0.0-2.0); EOSINOPHILS % (AUTO) 0.1 % (0.0-6.0); HEMATOCRIT 36 % (39-51); HEMOGLOBIN 12.4 g/dL (13.5-17.5); LYMPHOCYTES # (AUTO) 0.8 /CMM (0.8-4.8); LYMPHOCYTES % (AUTO) 11.8 % (20.0-44.0); MEAN CORPUSCULAR HGB CONC 34 g/dl (31.0-36.0); MEAN CORPUSCULAR VOLUME 103 fL (80-96); MONOCYTES # (AUTO) 0.7 /CMM (0.1-1.30); MONOCYTES % (AUTO) 9.1 % (2.0-12.0); NEUTROPHILS # (AUTO) 5.6 /CMM (1.8-8.9); NEUTROPHILS % (AUTO) 78.6 % (43.0-81.0); PLATELET COUNT (AUTO) 103 /CMM (150-450); WHITE BLOOD COUNT (AUTO) 7.2 K/uL (4.3-11.0)
[2018-10-03 09:37] LABS: BILIRUBIN,URINE MODERATE (NEGATIVE); BLOOD, URINE Moderate Ery/uL (NEGATIVE); COLOR,URINE Yellow (YELLOW); KETONES,URINE Negative (NEGATIVE); LEUKOCYTE ESTERASE ,URINE Trace (NEGATIVE); NITRITE, URINE Positive (NEGATIVE); PH,URINE 5.5 (5.0-8.0); PROTEIN,URINE 100 mg/dl (NEGATIVE); UGLUCOSE Negative (NEGATIVE)
[2018-10-03 09:39] LABS: APPEARANCE,URINE Slightly Cloudy (CLEAR)
[2018-10-03 09:42] LABS: CALCIUM, SERUM 8.7 mg/dL (8.5-10.1); CARBON DIOXIDE 29 mmol/L (21-32); CHLORIDE 104 mmol/L (98-107); CREATININE 0.8 mg/dL (0.6-1.3); GLUCOSE 111 mg/dL (74-106); SODIUM SERUM 141 mmol/L (136-145); UREA NITROGEN, BLOOD 26 mg/dL (7-18)
[2018-10-03 09:48] LABS: ALANINE AMINOTRANSFERASE 23 U/L (12-78); ALKALINE PHOSPHATASE 96 U/L (46-116); ASPARTATE AMINOTRANSFERASE 19 U/L (15-37); BILIRUBIN,DIRECT 0.3 mg/dL (0.0-0.2); BILIRUBIN,TOTAL 1.1 mg/dL (0.2-1.0); TOTAL PROTEIN, SERUM 6.7 g/dL (6.4-8.2)
[2018-10-03 09:53] LABS: BACTERIA,URINE Few /HPF (None Seen); RBC,URINE 20-50 /HPF (0-2); SQUAMOUS EPITHELIAL CELL,UR Few /HPF (None Seen); URINE AMORPHOUS URATE Few /HPF (None Seen); WBC,URINE 15-20 /HPF (0-3)
[2018-10-03] MEDS ORDERED: IPRA0.2S49 IH (09:57)
[2018-10-03] MEDS ORDERED: ALBU2.5V38 IH (09:57)
--- NOTE | 2018-10-03 10:02 | NUR ---
YTRELL SEE [phone]
--- NOTE | 2018-10-03 10:02 | NUR ---
DR SEE ON PHONE WITH DR CASTILLO; PT ACCEPTED
--- NOTE | 2018-10-03 10:03 | NUR ---
CALLED [facility] INBOUND INGREDIENT LOGISTICS SPECIALIST FOR BED
[2018-10-03] MEDS ORDERED: OMEP40CA37 PO (10:09)
[2018-10-03] MEDS ORDERED: SACC250C PO (10:09)
[2018-10-03] MEDS ORDERED: ATOR20TA PO (10:09)
[2018-10-03] MEDS ORDERED: CALC500P30 PO (10:09)
[2018-10-03] MEDS ORDERED: CALC568P PO (10:09)
[2018-10-03] MEDS ORDERED: LOSA100T3 PO (10:09)
[2018-10-03] MEDS ORDERED: ACET650T10 PO (10:09)
--- NOTE | 2018-10-03 10:28 | NUR ---
REPORT GIVEN TO MICHELL ORR FOR ADMISSION
--- NOTE | 2018-10-03 11:28 | NUR ---
PATIENT TRANSFERRED TO ROOM 309-1, NO DISTRESS NOTED.
--- NOTE | 2018-10-03 11:45 | NUR ---
MS RN ADMITTING NOTES RECEIVED REPORT FROM KIRBY SPENCER. PT ARRIVED IN THE UNIT BY A GURNEY AT 1125. PT SLEEPING, OPENS EYES TO STIMULI, NONVERBAL. NO ACUTE DISTRESS NOTED. ON OXYGEN AT 6L/MIN VIA SIMPLE MASK. NO FACIAL GRIMACE NOTED. IV INTACT AND PATENT. PT ADMITTED UNDER MEDICAL SUPERVISION OF DR. SEE, DR. BATRES COVERED AND MADE AWARE OF PT ARRIVAL. WILL CONTINUE TO MONITOR. MAINTAINED ASPIRATION PRECAUTION. BED IN LOW AND LOCKED POSITION. CALL LIGHT WITHIN REACH.
[2018-10-03 12:00] VITALS: BP 140/80
[2018-10-03] MEDS ORDERED: FEE PK DOSING 1 MIN EA MC ONE (15:11)
[2018-10-03] MEDS ORDERED: IV D5W 1,000 ML IV PRN (15:30)
[2018-10-03 16:00] VITALS: BP 155/83
[2018-10-03] MEDS ORDERED: IV D5/ 0.9% NACL 1,000 ML IV PRN (16:00)
[2018-10-03] MEDS ORDERED: IPRATROPIUM NEB FS 0.5 MG/2.5 ML AMPUL.NEB IH PRN (16:30)
[2018-10-03] MEDS: MEMANTINE HCL 5 MG TABLET PO SCH (16:58)
[2018-10-03] MEDS ORDERED: Z GUARD REMEDY 2 OZ OINT TP PRN (17:00)
--- NOTE | 2018-10-03 19:03 | NUR ---
MS RN CLOSING NOTES PATIENT AWAKE, ABLE TO FOLLOW WITH EYES. PT NONVERBAL. PATIENT RESTING IN BED ON OXYGEN AT 8L /MIN VIA SIMPLE FACE MASK. PATIENT IN NO ACUTE DISTRESS. NO SOB NOTED. PATIENT IV PATENT AND INTACT, INFUSING WELL ON D5 NS 50CC/HR. PATIENT KEPT CLEAN, DRY AND COMFORTABLE. ALL NURSING NEED ATTENDED AND MET. BED LOCKED AND IN LOW POSITION. BED ALARM ON WITH CALL LIGHT WITHIN REACH. ENDORSED CARE TO PM SHIFT.
--- NOTE | 2018-10-03 19:35 | NUR ---
RN OPENING NOTES RECEIVED REPORT FROM JOSE RNMICHELL. FOUND Pt AWAKE, RESTING IN BED. NO S/S OF ACUTE DISTRESS OR SOB NOTED. Per REPORT, Pt IS NONVERBAL, BUT CAN OPEN AND FOLLOW WITH HIS EYES. PER REPORT Pt IS OXYGEN DEPENDENT AT HOME; Pt IS ON 5L O2 MASK O2 SAT @99%. IV ACCESS ON LAC #18G D5NS @50ML/HR. SAFETY MEASURES IN PLACE. BED LOW, LOCKED, HOB ELEVATED, SIDE RAILS UP, CALL LIGHT AND BEDSIDE TABLE WITHIN REACH. BED ALARM ON. WILL CONTINUE TO MONITOR Pt's CONDITION AND SAFETY.
[2018-10-03 20:00] VITALS: BP_SYST 133; BP_DIAS 79; BP_DIAS 97
[2018-10-03] MEDS: ALBUTEROL FS 2.5 MG/0.5 ML VIAL.NEB NEB SCH ×2 (20:14→23:25)
[2018-10-03] MEDS: VANCOMYCIN 0.75 GM in IV D5W 250 ML IV SCH (21:42)
[2018-10-04] MEDS: ALBUTEROL FS 2.5 MG/0.5 ML VIAL.NEB NEB SCH ×6 (03:23→22:56)
--- NOTE | 2018-10-04 06:30 | NUR ---
RN CLOSING NOTES NO SIGNIFICANT CHANGES IN Pt's CONDITION. Pt REMAINS STABLE PER BASELINE. NO S/S OF ACUTE DISTRESS OR SOB NOTED DURING THE NIGHT. Pt IS RESTING IN BED. RESPIRATIONS EVEN AND UNLABORED. ON 6L 02 MASK SAT @ 99%-100%. ALL NEEDS MET AND ATTENDED TO. SAFETY MEASURES IN PLACE. BED LOW, LOCKED, HOB ELEVATED, SIDE RAILS UP, CALL LIGHT AND BEDSIDE TABLE WITHIN REACH. WILL ENDORSE TO DAYSHIFT RN FOR Pt's RENEA.
[2018-10-04] MEDS: PANTOPRAZOLE 40 MG TABLET.DR PO SCH (07:30)
--- NOTE | 2018-10-04 07:33 | NUR ---
MS RN OPENING NOTES PATIENT RESTING IN BED, ON OXYGEN AT 6L NC. PATIENT WITH NO ACUTE DISTRESS NOTED. NO SOB AND BREATHING IS UNLABORED. PATIENT IS NONVERBAL, FOLLOWS WITH HIS EYES. PATIENT IS MAINTAINED ON ASPIRATION PRECAUTIONS AND IS NPO. AWAITING ST FROM SPEECH THERAPY. PATIENT BED IS LOCKED AND IN LOW POSITION. CALL LIGHT WITHIN REACH. WILL CONTINUE TO MONITOR PATIENT.
[2018-10-04 08:00] VITALS: BP 141/80
--- NOTE | 2018-10-04 08:12 | NUR ---
CHANGE TO NASAL CANNULA O2 2L DUE TO SPO2 100%. Addendum: 10/04/18 at 0813 by MORENITA SOLANO RT Amended: Links added.
[2018-10-04 08:20] LABS: CALCIUM, SERUM 8.3 mg/dL (8.5-10.1); CARBON DIOXIDE 29 mmol/L (21-32); CHLORIDE 106 mmol/L (98-107); CREATININE 0.6 mg/dL (0.6-1.3); GLUCOSE 103 mg/dL (74-106); MAGNESIUM 1.8 mg/dL (1.8-2.4); PHOSPHORUS 2.4 mg/dL (2.5-4.9); POTASSIUM 3.9 mmol/L (3.5-5.1); SODIUM SERUM 141 mmol/L (136-145); UREA NITROGEN, BLOOD 23 mg/dL (7-18)
[2018-10-04 08:21] LABS: BASOPHILS % (AUTO) 0.2 % (0.0-2.0); EOSINOPHILS % (AUTO) 0.4 % (0.0-6.0); HEMATOCRIT 33 % (39-51); HEMOGLOBIN 11.1 g/dL (13.5-17.5); LYMPHOCYTES # (AUTO) 1.3 /CMM (0.8-4.8); LYMPHOCYTES % (AUTO) 16.9 % (20.0-44.0); MEAN CORPUSCULAR HGB CONC 34 g/dl (31.0-36.0); MEAN CORPUSCULAR VOLUME 103 fL (80-96); MONOCYTES # (AUTO) 0.5 /CMM (0.1-1.30); MONOCYTES % (AUTO) 6.7 % (2.0-12.0); NEUTROPHILS # (AUTO) 5.9 /CMM (1.8-8.9); NEUTROPHILS % (AUTO) 75.8 % (43.0-81.0); PLATELET COUNT (AUTO) 87 /CMM (150-450); RED BLOOD CELL COUNT(AUTO) 3.16 MIL/uL (4.5-6.0); WHITE BLOOD COUNT (AUTO) 7.8 K/uL (4.3-11.0)
[2018-10-04] MEDS: MEMANTINE HCL 5 MG TABLET PO SCH ×2 (08:31→16:12)
[2018-10-04] MEDS: VANCOMYCIN 0.75 GM in IV D5W 250 ML IV SCH ×2 (08:33→20:39)
[2018-10-04] MEDS: CEFEPIME 1 GM in IV D5W 50 ML IV SCH (10:32)
--- NOTE | 2018-10-04 12:37 | NUR ---
MS RN NOTES PATIENT SEEN AND EXAMINED BY DR SEE. NEW ORDERS NOTED AND CARRIED OUT. WILL CONTINUE TO MONITOR
--- NOTE | 2018-10-04 13:30 | NUR ---
MS RN NOTES PATIENT RESTING INSIDE ROOM. AWAKE, ALERT AND ORIENTED TO SELF. PATIENT MORE AWAKE THAN EARLIER TODAY. ABLE TO VERBALIZE "OK" WHEN ASKED. NO ACUTE DISTRESS NOTED. PATIENT UNABLE TO PROVIDE ACCURATE HISTORY. SAFETY PRECAUTIONS IN PLACE. WILL CONTINUE TO MONITOR
[2018-10-04] MEDS: ENOXAPARIN SODIUM 40 MG/0.4 ML DISP.SYRIN SQ SCH (14:23)
[2018-10-04 16:00] VITALS: BP 116/76
[2018-10-04] MEDS ORDERED: NEUTRA PHOS 1 POWD.PACKET PO ONE (16:00)
--- NOTE | 2018-10-04 19:08 | NUR ---
MS RN CLOSING NOTES PATIENT RESTING IN BED, ON ROOM AIR SATURATING AT 95% PRN. PATIENT AWAKE BUT CONFUSED. PATIENT FOLLOWS WITH EYES AND RESPONDS WITH "OKAY". PATIENT PLACED ON PUREED DIET. PATIENT WAS KEPT COMFORTABLE, CLEAN , AND DRY. PATIENT IS NOT IN ACUTE DISTRESS. NO SOB NOTED. PATIENT BED LOCKED AND IN LOW POSITION. ALL NURSING NEEDS MET. CALL LIGHT WITHIN REACH. ENDORSED TO PM SHIFT FOR RENEA.
--- NOTE | 2018-10-04 19:30 | NUR ---
RN OPEN NOTES RECEIVED PATIENT AWAKE IN BED. A/O X1. CONFUSED BUT SMILES AND RESPONSES TO NAME. NO SIGNS OF DISTRESS OR DISCOMFORT. BREATHING EVEN AND UNLABORED. IV ACCESS IN LAC, PATENT AND INTACT, N0 SIGNS OF REDNESS OR INFILTRATION. BED IN LOW LOCKED POSITION WITH SIDE RAILS X3. CALL LIGHT WITHIN REACH. WILL CONTINUE TO MONITOR.
[2018-10-04 20:00] VITALS: BP 131/48
[2018-10-05] MEDS: ALBUTEROL FS 2.5 MG/0.5 ML VIAL.NEB NEB SCH ×6 (04:24→23:32)
--- NOTE | 2018-10-05 06:38 | NUR ---
RN CLOSING NOTES PATIENT RESTING IN BED. A/O X1. CONFUSED, RESPONDS TO NAME. NO SIGNS OF DISTRESS OR DISCOMFORT. BREATHING EVEN AND UNLABORED. ON 2LPM O2 VIA NC. IV ACCESS IN LAC, PATENT AND INTACT, N0 SIGNS OF REDNESS OR INFILTRATION. ALL NEEDS MET. NO SIGNIFICANT CHANGES THROUGH THE NIGHT. REPOSITIONED Q2H AND PRN. BED IN LOW LOCKED POSITION WITH SIDE RAILS X3. CALL LIGHT WITHIN REACH. WILL ENDORSE TO AM SHIFT FOR RENEA.
--- NOTE | 2018-10-05 07:35 | NUR ---
RN OPENING NOTE PT WAS RECEIVED IN BED AT LOWEST AND LOCKED POSITION WITH SIDE RAILS UP X2, A/O X1 CONFUSED, BREATHING EVEN AND UNLABORED ON 3L VIA NC WITH Q4H BREATHING TX, NO S/S OF ANY DISTRESS OR PAIN AT THIS TIME, IV IS PATENT AND INTACT, SAFETY PRECAUTIONS IN PLACE, CALL LIGHT WITHIN REACH, WILL MONITOR PT ACCORDINGLY
[2018-10-05 07:59] LABS: CALCIUM, SERUM 7.8 mg/dL (8.5-10.1); CARBON DIOXIDE 28 mmol/L (21-32); CHLORIDE 106 mmol/L (98-107); CREATININE 0.6 mg/dL (0.6-1.3); GLUCOSE 89 mg/dL (74-106); PHOSPHORUS 2.6 mg/dL (2.5-4.9); POTASSIUM 3.7 mmol/L (3.5-5.1); SODIUM SERUM 143 mmol/L (136-145); UREA NITROGEN, BLOOD 17 mg/dL (7-18)
[2018-10-05] MEDS: Z GUARD REMEDY 2 OZ OINT TP SCH (08:10)
[2018-10-05] MEDS: VANCOMYCIN 0.75 GM in IV D5W 250 ML IV SCH (08:10)
[2018-10-05] MEDS: MEMANTINE HCL 5 MG TABLET PO SCH ×2 (08:10→16:36)
[2018-10-05] MEDS: PANTOPRAZOLE 40 MG TABLET.DR PO SCH (08:10)
[2018-10-05 08:20] VITALS: BP 139/63
[2018-10-05] MEDS: CEFEPIME 1 GM in IV D5W 50 ML IV SCH (09:20)
--- NOTE | 2018-10-05 12:00 | NUR ---
RN NOTE INFORMED BY SPEECH THERAPIST THAT DIET WILL BE CHANGED TO PUREED THICK LIQUID DUE TO HIM COUGHING WHEN CONSUMING THIN LIQUIDS. WILL MONITOR PT ACCORDINGLY
[2018-10-05 16:00] VITALS: BP 122/93
[2018-10-05] MEDS: VANCOMYCIN 1 GM in IV D5W 250 ML IV SCH (17:04)
--- NOTE | 2018-10-05 18:31 | NUR ---
RN CLOSING NOTE PT IN BED AT LOWEST AND LOCKED POSITION WITH SIDE RAILS UP X2, A/O X1 CONFUSED BREATHING EVEN AND UNLABORED ON 2L VIA NC WITH NO S/S OF ANY DISTRESS OR PAIN AT THIS TIME, IV IS PATENT AND INTACT, SAFETY PRECAUTIONS IN PLACE, CALL LIGHT WITHIN REACH, ALL NEEDS ATTENDED TO, WILL ENDORSE TO SOFT WORK CIGAR MACHINE OPERATOR RN FOR RENEA.
--- NOTE | 2018-10-05 19:00 | NUR ---
MS RN OPENING NOTES Received patient awake on semi-Freitas's position on bed. On O2 inhalation @ 2LPM, saturating well, no SOB/respiratory distress noted. On fall precaution, call light within easy reach. Will continue to monitor accordingly.
[2018-10-05 20:00] VITALS: BP 134/79
[2018-10-05] MEDS: ENOXAPARIN SODIUM 40 MG/0.4 ML DISP.SYRIN SQ SCH (21:12)
--- NOTE | 2018-10-05 21:12 | NUR ---
MS RN NOTES MD notified of pt's current coagulation and h/h level. Per MD, to give due Lovenox. Will continue to monitor accordingly.
[2018-10-06] MEDS: ALBUTEROL FS 2.5 MG/0.5 ML VIAL.NEB NEB SCH ×6 (03:04→22:46)
[2018-10-06] MEDS: VANCOMYCIN 1 GM in IV D5W 250 ML IV SCH ×2 (05:10→17:59)
--- NOTE | 2018-10-06 06:41 | NUR ---
MS RN CLOSING NOTES Patient noted intermittently asleep throughout the shift. No new complaints made. Afebrile the whole shift. All due meds given as ordered, no ASE noted. All nursing needs attended. On fall precaution. Call light within easy reach. Endorsed to the next shift. Addendum: 10/06/18 at 0656 by WERNER HERNANDEZ RN On tele monitor with V-pacing 100% capture.
[2018-10-06 07:02] LABS: CARBON DIOXIDE 33 mmol/L (21-32); CHLORIDE 108 mmol/L (98-107); CREATININE 0.6 mg/dL (0.6-1.3); GLUCOSE 85 mg/dL (74-106); SODIUM SERUM 145 mmol/L (136-145); UREA NITROGEN, BLOOD 11 mg/dL (7-18)
[2018-10-06] MEDS: MEMANTINE HCL 5 MG TABLET PO SCH ×2 (08:01→16:17)
[2018-10-06] MEDS: PANTOPRAZOLE 40 MG TABLET.DR PO SCH (08:01)
[2018-10-06] MEDS: Z GUARD REMEDY 2 OZ OINT TP SCH (08:04)
[2018-10-06] MEDS: CEFEPIME 1 GM in IV D5W 50 ML IV SCH (09:51)
[2018-10-06 16:00] VITALS: BP 132/72
[2018-10-06] MEDS: LACTOBACILLUS RHAMNOSUS GG 1 EACH CAP.SPRINK PO SCH (16:17)
--- NOTE | 2018-10-06 18:16 | NUR ---
RN CLOSING NOTE PT IN BED AT LOWEST AND LOCKED POSITION WITH SIDE RAILS UP X2, A/O X1 CONFUSED, BREATHING EVEN AND UNLABORED ON 3L VIA NC WITH NO S/S OF ANY DISTRESS OR PAIN AT THIS TIME, IV IS PATENT AND INTACT WITH ABX CURRENTLY INFUSING, SAFETY PRECAUTIONS IN PLACE, CALL LIGHT WITHIN REACH, ALL NEEDS ATTENDED TO, WILL ENDORSE TO WELDER OXYHYDROGEN RN FOR RENEA.
--- NOTE | 2018-10-06 19:50 | NUR ---
RN OPENING NOTES RECEIVED PATIENT AWAKE IN BED, RESTING COMFORTABLY. PATIENT IS A/O X1 CONFUSED. NO SIGNS OF RESPIRATORY DISTRESS. NO S/S OF SOB OR PAIN AT THIS TIME. IV SITE PATENT AND INTACT. SAFETY PRECAUTIONS IMPLEMENTED. CALL LIGHT WITHIN REACH. WILL CONTINUE TO MONITOR PATIENT THROUGHOUT THE SHIFT.
[2018-10-06 20:00] VITALS: BP 106/63
[2018-10-06] MEDS: ENOXAPARIN SODIUM 40 MG/0.4 ML DISP.SYRIN SQ SCH (21:20)
[2018-10-07] MEDS: ALBUTEROL FS 2.5 MG/0.5 ML VIAL.NEB NEB SCH ×4 (03:30→15:30)
[2018-10-07] MEDS: VANCOMYCIN 1 GM in IV D5W 250 ML IV SCH ×2 (05:10→18:49)
--- NOTE | 2018-10-07 06:47 | NUR ---
RN CLOSING NOTES PATIENT WAS INTERMITTENTLY SLEEPING THROUGHOUT THE SHIFT. NO COMPLAINTS MADE. AFEBRILE THE WHOLE SHIFT. ALL DUE MEDICATIONS GIVEN ORDERED. ALL NEEDS ATTENDED TO. PATIENT TURNED Q2HR, EXTREMITIES OFFLOADED. SAFETY PRECAUTIONS IMPLEMENTED. CALL LIGHT WITHIN REACH. WILL ENDORSE TO AM SHIFT FOR CONTINUITY OF CARE.
[2018-10-07 06:54] LABS: CALCIUM, SERUM 7.9 mg/dL (8.5-10.1); CARBON DIOXIDE 32 mmol/L (21-32); CHLORIDE 107 mmol/L (98-107); CREATININE 0.6 mg/dL (0.6-1.3); GLUCOSE 106 mg/dL (74-106); POTASSIUM 3.5 mmol/L (3.5-5.1); SODIUM SERUM 144 mmol/L (136-145); UREA NITROGEN, BLOOD 11 mg/dL (7-18)
--- NOTE | 2018-10-07 07:44 | NUR ---
RN MS OPENING NOTES Received patient on 2L nasal cannula, patient easily awakened, still shows confusion. Patient does not show any s/s of pain at this time. Bed at the lowest setting, call light within reach.
[2018-10-07 08:00] VITALS: BP 160/69
[2018-10-07] MEDS: PANTOPRAZOLE 40 MG TABLET.DR PO SCH (09:30)
[2018-10-07] MEDS: LACTOBACILLUS RHAMNOSUS GG 1 EACH CAP.SPRINK PO SCH ×2 (09:30→16:18)
[2018-10-07] MEDS: MEMANTINE HCL 5 MG TABLET PO SCH ×2 (09:30→16:18)
[2018-10-07] MEDS: Z GUARD REMEDY 2 OZ OINT TP SCH (09:31)
[2018-10-07] MEDS: CEFEPIME 1 GM in IV D5W 50 ML IV SCH (10:17)
[2018-10-07 16:00] VITALS: BP 146/69
--- NOTE | 2018-10-07 18:54 | NUR ---
RN MS NOTES Patient discharged around 185, no sob noted. Vital signs stable all shift. Patient was on 3 L o2 nasal cannula when he left. Patient has his discharge paperwork in his possession and all the instructions included, EMT is going to carry it for him to the next facility. Photo taken of his wounds and is filed in his chart.
[2018-10-07] MEDS ORDERED: CEFEPIME 2 GM in IV D5W 100 ML IV SCH (22:00)
== END 2018-10-07 18:45 | DRG 178 ==
LOC: ER 09:21 → MEDSG2 10:53 → UNDOADMIN 10:53 → MED 11:00
PROVIDERS: ADMIT Emergency Medicine Hospice and Palliative Medicine; ATTEND Internal Medicine
DX: J69.0 Pneumonitis due to inhalation of food and vomit (principal); N39.0 Urinary tract infection, site not specified; G93.40 Encephalopathy, unspecified; N17.9 Acute kidney failure, unspecified; E46 Unspecified protein-calorie malnutrition; Z68.1 Body mass index [BMI] 19.9 or less, adult; Z66 Do not resuscitate; I25.10 Atherosclerotic heart disease of native coronary artery without angina pectoris; D63.8 Anemia in other chronic diseases classified elsewhere; D69.6 Thrombocytopenia, unspecified; E78.5 Hyperlipidemia, unspecified; G30.9 Alzheimer's disease, unspecified; F02.80 Dementia in other diseases classified elsewhere, unspecified severity, without behavioral disturbance, psychotic disturbance, mood disturbance, and anxiety; I25.2 Old myocardial infarction; K21.9 Gastro-esophageal reflux disease without esophagitis; Z87.01 Personal history of pneumonia (recurrent); J44.9 Chronic obstructive pulmonary disease, unspecified; I50.9 Heart failure, unspecified; I11.0 Hypertensive heart disease with heart failure; Z90.49 Acquired absence of other specified parts of digestive tract; M24.542 Contracture, left hand; M24.541 Contracture, right hand; L89.150 Pressure ulcer of sacral region, unstageable; R53.1 Weakness
CPT/HCPCS: 31720; 36415; 71045-TC; 80048-TC; 80076-TC; 80202-TC; 81000-TC; 83605-TC; 83735-TC; 84100-TC; 84484-TC; 85025-TC; 85730-TC; 87040-TC; 87070-TC; 87081-TC; 87086-TC; 92526; 92611-TC; 94760-TC; 94799-TC; G0378; J0692; J1650; J3370; J7030; J7042; J7050; J7060